=== PATIENT | male | born 1955 | race Caucasian/White ===

== ENCOUNTER 2018-07-12 05:34 | Outpatient (RCR) | payer MEDICARE, SELFPAY ==
[2018-07-12] MEDS: Normal Saline Flush 10 ML SYR IVP (08:34)
== END 2018-07-19 ==
LOC: INF 05:34
PROVIDERS: PCP Family Medicine; Visit Provider Family Medicine
DX: M05.9 Rheumatoid arthritis with rheumatoid factor, unspecified (principal)
CPT/HCPCS: 96365; J3490

== ENCOUNTER 2018-07-17 09:30 | Outpatient (RCR) | payer MEDICARE, SELFPAY ==
--- NOTE | 2018-07-03 11:42 | PTTR_ITS ---
DATE: 07/03/18 SUBJECTIVE: I am doing okay but I did have a little set back. OBJECTIVE: Manual therapy: ([id number]): Patient was placed in prone and mobilized through the distal gastrocs and mid substance of the Achilles tendon with IASTM for myofascial release. Light down regulation techniques were applied through the distal calf and patient was taped with Rock tape supporting Achilles tendon function with assist and stability. Ultrasound ([id number]). Patient receiving ultrasound directed to the mid substance of the Achilles tendon with specific parameters of 3MHz, 0.9watts per cm2 and 8 minute duration. Patient with good symptoms relief at the end of the session. Direct treatment time: 30 minutes of direct patient care.
--- NOTE | 2018-07-10 12:04 | PTTR_ITS ---
DATE: 07/10/18 SUBJECTIVE: I am doing pretty well for the most part. OBJECTIVE: Manual therapy: ([id number]). Patient was placed in supine and held under light long axis traction to decompress the hip, knee, and ankle. He is then stretched lightly through the piriformis and hamstrings with active isolated stretching technique. Patient placed in prone with neutral hip position knee flexion. He was then guided through light soft tissue work through the medial and lateral heads of the gastrocs, muscle bellies, and through the mid substance of the Achilles tendon. Patient then taped with a Rock tape support of the achilles tendon and force redistribution approach as well. Ultrasound ([id number]). Patient remaining in prone with treatment over the distal Achilles tendon and calcaneal apophysis. Specific parameters were 3MHz, 0.9watts per cm2 and 8 minute duration. Direct treatment time: 25 minutes of direct patient care.
--- NOTE | 2018-07-17 11:49 | PTTR_ITS ---
DATE: 07/17/18 SUBJECTIVE: I am doing pretty well for the most part. Making definite progress for sure. OBJECTIVE: Manual therapy: ([id number]): Patient was placed in prone and was mobilized with soft tissue mobilization through the hamstrings distally both medial and lateral fibers. The gastrocs both medial and lateral heads were mobilized with tolerance down to the musculotendinous junction. He is lightly stretched through the gastrocs with knee extension and ankle dorsiflexion. Patient then taped with Rock tape facilitation technique for plantarflexion assist and Achilles protection. A force redistribution taping was applied through the distal Achilles just superior of the calcaneal apophysis. Ultrasound - - [id number]: Ultrasound directed to the calcaneal apophysis with specific parameters of 3MHz, 100% duty cycle, 0.9watts per cm2 and 8 minute duration. This was done for pain control, anti-inflammation, and cellular excitation. Direct treatment time: 30 minutes of direct patient care.
== END 2018-07-19 23:59 | disposition home or self-care (01) ==
LOC: PT 09:30
PROVIDERS: PCP Family Medicine; Referring Provider Specialist/Technologist Athletic Trainer; Visit Provider Specialist/Technologist Athletic Trainer
DX: M76.61 Achilles tendinitis, right leg (principal); R26.89 Other abnormalities of gait and mobility; M06.9 Rheumatoid arthritis, unspecified; M79.89 Other specified soft tissue disorders
CPT/HCPCS: 97035; 97140

== ENCOUNTER 2018-08-09 00:48 | Outpatient (RCR) | payer MEDICARE, SELFPAY ==
[2018-08-09] MEDS: Normal Saline Flush 10 ML SYR IVP (08:24)
== END 2018-08-18 23:59 | disposition home or self-care (01) ==
LOC: INF 00:48
PROVIDERS: PCP Family Medicine; Visit Provider Family Medicine
DX: M05.9 Rheumatoid arthritis with rheumatoid factor, unspecified (principal)
CPT/HCPCS: 96365; J3490

== ENCOUNTER 2018-09-06 02:35 | Outpatient (RCR) | payer MEDICARE, SELFPAY ==
[2018-09-06] MEDS: Normal Saline Flush 10 ML SYR IVP (08:39)
== END 2018-09-18 23:59 | disposition home or self-care (01) ==
LOC: INF 02:35
PROVIDERS: PCP Family Medicine; Visit Provider Family Medicine
DX: M05.9 Rheumatoid arthritis with rheumatoid factor, unspecified (principal)
CPT/HCPCS: 96365; J3490

== ENCOUNTER 2018-09-21 20:50 | Emergency (ER) | payer MEDICARE, SELFPAY ==
--- NOTE | 2018-09-21 21:05 | DI.RAD_ITS ---
SYMPTOM/DIAGNOSIS: INSIDIOUS ONSET RT MEDIAL KNEE, PAIN/SWELLING RIGHT KNEE: 3 VIEWS No acute fracture or dislocation is seen. There is moderate narrowing of the medial femoral tibial joint space with periarticular spurring present. Mild spurring is seen at the posterior patella. Well corticated osseous fragment densities are seen medial to the medial femoral condyle likely reflecting old injury. The bones are normally mineralized. There is a small joint effusion. Vascular calcifications are seen in the soft tissues. IMPRESSION: No acute fracture or dislocation. 2. Osteoarthritis of the right knee.
--- NOTE | 2018-09-21 21:07 | W.ED.GENAD ---
Discharge Plan Disposition Patient Disposition: HOME Condition: Improving Discharge Details Chief Complaint: Orthopedic Clinical Impression: Osteoarthritis of right knee Primary Care Provider: Roshni Singh V ED Provider: Anatoly Cervantes Home Meds and New Rx's Prescriptions: New prednisone 20 mg tablet 40 mg PO DAILY 5 Days Qty: 10 RF: 0 Continue trazodone 50 MG tablet 50 mg PO HS PRNRF: 0 carbidopa-levodopa 1 EACH tablet 1 tab-cap PO QID RF: 0 sennosides-docusate sodium [Senna Laxative-Stool Softener] 1 EACH tablet 1 - 2 tab-cap PO DAILY RF: 0 prednisone 5 MG tablet 5 mg PO DIRECTED RF: 0 oxycodone 15 MG tablet 15 mg PO TID PRNRF: 0 hydrocortisone acetate 28.4 GM cream 1 applic Topical QID PRNRF: 0 fluticasone [Flovent HFA] 10.6 GM HFA aerosol inhaler 10.6 gm Inhalation BID RF: 0 fluoxetine [Prozac] 10 MG capsule 10 mg PO DAILY RF: 0 leucovorin calcium 5 MG tablet 5 mg PO DIRECTED RF: 0 lorazepam 1 MG tablet 0.5 - 1 mg PO HS PRNRF: 0 albuterol sulfate [Proventil HFA] 6.7 GM HFA aerosol inhaler 2 puff Inhalation Q6H PRN RF: 0 cholecalciferol (vitamin D3) 2,000 UNIT tablet 2,000 unit PO DAILY RF: 0 Discharge Instructions Instructions: Arthritis (ED) Additional Instructions: Return if you develop a fever, redness, worsening pain, or any other acute concerns. Twice daily range of motion exercises including heel sliding as we discussed. May wear brace as needed for comfort 3-5 days time. Our care management team will place you on the orthopedic follow-up list. Please call the clinic on Sunday at [phone] for an appointment time. Take prednisone as prescribed. May use the provided oxycodone for breakthrough pain. Continue your regular medications Medical Decision Making 62-year-old male presents from home with right knee pain over 4 days time associated with swelling and now pain with weightbearing. Denies fever or chills. Is not had a rash. No recent dental work or infection He is afebrile and well-appearing. He is quite tender on palpation of the medial knee & there is mild swelling. Differential diagnosis includes gout, arthritis. Patient referred for diagnostic testing: Patient's x-ray reveals tricompartmental arthritic changes with small joint effusion. CBC, CRP, uric acid are unremarkable. Patient did undergo a CT scan to rule out occult tibial plateau fracture it does show tricompartmental arthritic changes with small effusion. I discussed with him arthrocentesis which he would like to decline at this time. I will treat him for acute flare of osteoarthritis with immobilization, crutches as needed, daily range of motion exercises, a burst of steroids, and referral to orthopedics. HPI General Mode of arrival: wheelchair. Date/Time Provider Initiated Documentation: 09/21/18 20:52. Limitations to Documentation: no limitations. Information obtained by: patient and family. History of Present Illness 62 year old M presents to the emergency department with the chief complaint of Right knee pain and swelling over day days time, described as moderate, Quality is described as aching, Patient reports no radiation. Patient started experiencing this day(s) and it has been constant. Rest improves symptom(s), Movement worsens symptoms . Patient notes no other symptoms.. HPI Narrative: 62-year-old male who had previous right knee ACL repair in 1972. He reports insidious and gradual onset of aching, moderate, nonradiating right knee pain and swelling over 4 days time. No fever, chills, redness. No recent dental work or travel. Denies recent illness but states he may have had a mild URI 3 weeks Related Data Home Medications Medication Instructions Recorded Confirmed albuterol sulfate [Proventil HFA] 2 puff INHALATION Q6H PRN inhaler 09/20/16 09/21/18 carbidopa-levodopa 1 tab-cap PO QID tab-cap 09/20/16 09/21/18 cholecalciferol (vitamin D3) 2,000 unit PO DAILY tab-cap 09/20/16 09/21/18 fluoxetine [Prozac] 10 mg PO DAILY tab-cap 09/20/16 09/21/18 fluticasone [Flovent HFA] 10.6 gm INHALATION BID inhaler 09/20/16 09/21/18 hydrocortisone acetate 1 applic TOPICAL QID PRN script 09/20/16 09/21/18 leucovorin calcium 5 mg PO DIRECTED tab-cap 11/02/16 11/03/18 lorazepam 0.5 - 1 mg PO HS PRN tab-cap 09/20/16 09/21/18 oxycodone 15 mg PO TID PRN tab-cap 09/20/16 09/21/18 prednisone 5 mg PO DIRECTED tab-cap 09/20/16 sennosides-docusate sodium [Senna 1 - 2 tab-cap PO DAILY tab-cap 09/20/16 09/21/18 Laxative-Stool Softener] trazodone 50 mg PO HS PRN tab-cap 09/20/16 09/21/18 prednisone 40 mg PO DAILY 5 Days #10 tab 09/22/18 Previous Rx's Medication Instructions Recorded prednisone 40 mg PO DAILY 5 Days #10 tab 09/22/18 Allergies Allergy/AdvReac Type Severity Reaction Status Date / Time trihexyphenidyl Allergy Severe Dizziness/L Unverified 09/21/18 23:42 ightheade adalimumab [From Humira] Allergy Intermediate Hives Unverified 04/21/13 22:47 gabapentin Allergy Intermediate Hives Unverified 04/21/13 22:48 ibuprofen [From Advil] Allergy Intermediate Hives Unverified 04/21/13 22:48 leflunomide [From Arava] Allergy Intermediate Hives Unverified 04/21/13 22:48 pregabalin [From Lyrica] Allergy Intermediate Hives Unverified 04/21/13 22:48 tapentadol HCl [From Nucynta] AdvReac Intermediate GI Upset Unverified 01/12/14 16:35 and Rash venlafaxine AdvReac Intermediate Headache Unverified 01/12/14 16:35 duloxetine HCl AdvReac Mild Skin Rash Unverified 01/12/14 16:35 [From Cymbalta] methadone AdvReac Unverified 09/21/18 23:40 Review of Systems Review of Systems 8 systems reviewed and otherwise negative PFSH Social History Smoking/Tobacco Use Status: Former Tobacco Use Exam Narrative Exam Narrative: GEN: awake, alert, oriented 3. Pleasant, well groomed, interactive. HEAD: Normocephalic, atraumatic ENT: Mucous membranes moist, oropharynx unremarkable, External ear exam unremarkable EYES: PERRL, EOMI NECK: Full ROM, no MARC, no menigismus CHEST/RESP: Nontender, clear to auscultation bilateral, no wheeze/rhonchi/rales CARDIOVASCULAR: RRR, no murmur, rub casper. 2+ Rad pulse bilateral ABDOMEN: Soft, nontender, no mass. +Bowel sounds EXT: Motor is 5 out of 5 bilaterally. Sensation intact throughout. There is a crescent shaped medial surgical scar. Patient has pain with passive flexion. There is mild medial swelling at the tibial plateau and tenderness to palpation. No overlying rash. Neuro: Grossly normal neurologic exam, conversant, interactive. Psych: Speech fluent, thoughts congruent, affect normal
[2018-09-21 21:08] VITALS: BP 147/88; PULSE 63; RESP 18; TEMP 36.8; O2SAT 96
--- NOTE | 2018-09-21 21:10 | ED.GENADUL_ITS ---
Discharge Plan Disposition Patient Disposition: HOME Condition: Improving Discharge Details Chief Complaint: Orthopedic Clinical Impression: Osteoarthritis of right knee Primary Care Provider: Roshni Singh V ED Provider: Anatoly Cervantes Home Meds and New Rx's Prescriptions: New prednisone 20 mg tablet 40 mg PO DAILY 5 Days Qty: 10 RF: 0 Continue trazodone 50 MG tablet 50 mg PO HS PRNRF: 0 carbidopa-levodopa 1 EACH tablet 1 tab-cap PO QID RF: 0 sennosides-docusate sodium [Senna Laxative-Stool Softener] 1 EACH tablet 1 - 2 tab-cap PO DAILY RF: 0 prednisone 5 MG tablet 5 mg PO DIRECTED RF: 0 oxycodone 15 MG tablet 15 mg PO TID PRNRF: 0 hydrocortisone acetate 28.4 GM cream 1 applic Topical QID PRNRF: 0 fluticasone [Flovent HFA] 10.6 GM HFA aerosol inhaler 10.6 gm Inhalation BID RF: 0 fluoxetine [Prozac] 10 MG capsule 10 mg PO DAILY RF: 0 leucovorin calcium 5 MG tablet 5 mg PO DIRECTED RF: 0 lorazepam 1 MG tablet 0.5 - 1 mg PO HS PRNRF: 0 albuterol sulfate [Proventil HFA] 6.7 GM HFA aerosol inhaler 2 puff Inhalation Q6H PRN RF: 0 cholecalciferol (vitamin D3) 2,000 UNIT tablet 2,000 unit PO DAILY RF: 0 Discharge Instructions Instructions: Arthritis (ED) Additional Instructions: Return if you develop a fever, redness, worsening pain, or any other acute concerns. Twice daily range of motion exercises including heel sliding as we discussed. May wear brace as needed for comfort 3-5 days time. Our care management team will place you on the orthopedic follow-up list. Please call the clinic on Sunday at [phone] for an appointment time. Take prednisone as prescribed. May use the provided oxycodone for breakthrough pain. Continue your regular medications Medical Decision Making 62-year-old male presents from home with right knee pain over 4 days time associated with swelling and now pain with weightbearing. Denies fever or chills. Is not had a rash. No recent dental work or infection He is afebrile and well-appearing. He is quite tender on palpation of the medial knee & there is mild swelling. Differential diagnosis includes gout, arthritis. Patient referred for diagnostic testing: Patient's x-ray reveals tricompartmental arthritic changes with small joint effusion. CBC, CRP, uric acid are unremarkable. Patient did undergo a CT scan to rule out occult tibial plateau fracture it does show tricompartmental arthritic changes with small effusion. I discussed with him arthrocentesis which he would like to decline at this time. I will treat him for acute flare of osteoarthritis with immobilization, crutches as needed, daily range of motion exercises, a burst of steroids, and referral to orthopedics. HPI General Mode of arrival: wheelchair . Date/Time Provider Initiated Documentation: 09/21/18 20:52 . Limitations to Documentation: no limitations . Information obtained by: patient and family . History of Present Illness 62 year old M presents to the emergency department with the chief complaint of Right knee pain and swelling over day days time, described as moderate, Quality is described as aching, Patient reports no radiation. Patient started experiencing this day(s) and it has been constant. Rest improves symptom(s), Movement worsens symptoms . Patient notes no other symptoms.. HPI Narrative: 62-year-old male who had previous right knee ACL repair in 1972. He reports insidious and gradual onset of aching, moderate, nonradiating right knee pain and swelling over 4 days time. No fever, chills, redness. No recent dental work or travel. Denies recent illness but states he may have had a mild URI 3 weeks Related Data Home Medications Medication Instructions Recorded Confirmed albuterol sulfate [Proventil HFA] 2 puff INHALATION Q6H PRN inhaler 09/20/16 carbidopa-levodopa 1 tab-cap PO QID tab-cap 09/20/16 09/21/18 cholecalciferol (vitamin D3) 2,000 unit PO DAILY tab-cap 09/20/16 09/21/18 fluoxetine [Prozac] 10 mg PO DAILY tab-cap 09/20/16 09/21/18 fluticasone [Flovent HFA] 10.6 gm INHALATION BID inhaler 09/20/16 09/21/18 hydrocortisone acetate 1 applic TOPICAL QID PRN script 09/20/16 09/21/18 leucovorin calcium 5 mg PO DIRECTED tab-cap 11/02/16 11/03/18 lorazepam 0.5 - 1 mg PO HS PRN tab-cap 09/20/16 09/21/18 oxycodone 15 mg PO TID PRN tab-cap 09/20/16 09/21/18 prednisone 5 mg PO DIRECTED tab-cap 09/20/16 sennosides-docusate sodium [Senna 1 - 2 tab-cap PO DAILY tab-cap 09/20/1609/21 Laxative-Stool Softener] trazodone 50 mg PO HS PRN tab-cap 09/20/16 09/21/18 prednisone 40 mg PO DAILY 5 Days #10 tab 09/22/18 Previous Rx's Medication Instructions Recorded prednisone 40 mg PO DAILY 5 Days #10 tab 09/22/18 Allergies Allergy/AdvReac Type Severity Reaction Status Date / Time trihexyphenidyl Allergy Severe Dizziness/L Unverified 09/21/18 23:42 ightheade adalimumab [From Humira] Allergy Intermediate Hives Unverified 04/21/13 22:47 gabapentin Allergy Intermediate Hives Unverified 04/21/13 22:48 ibuprofen [From Advil] Allergy Intermediate Hives Unverified 04/21/13 22:48 leflunomide [From Arava] Allergy Intermediate Hives Unverified 04/21/13 22:48 pregabalin [From Lyrica] Allergy Intermediate Hives Unverified 04/21/13 22:48 tapentadol HCl [From Nucynta] AdvReac Intermediate GI Upset Unverified 01/12/14 16:35 and Rash venlafaxine AdvReac Intermediate Headache Unverified 01/12/14 16:35 duloxetine HCl AdvReac Mild Skin Rash Unverified 01/12/14 16:35 [From Cymbalta] methadone AdvReac Unverified 09/21/18 23:40 Review of Systems Review of Systems 8 systems reviewed and otherwise negative PFSH Social History Smoking/Tobacco Use Status: Former Tobacco Use Exam Narrative Exam Narrative: GEN: awake, alert, oriented 3. Pleasant, well groomed, interactive. HEAD: Normocephalic, atraumatic ENT: Mucous membranes moist, oropharynx unremarkable, External ear exam unremarkable EYES: PERRL, EOMI NECK: Full ROM, no MARC, no menigismus CHEST/RESP: Nontender, clear to auscultation bilateral, no wheeze/rhonchi/rales CARDIOVASCULAR: RRR, no murmur, rub casper. 2+ Rad pulse bilateral ABDOMEN: Soft, nontender, no mass. +Bowel sounds EXT: Motor is 5 out of 5 bilaterally. Sensation intact throughout. There is a crescent shaped medial surgical scar. Patient has pain with passive flexion. There is mild medial swelling at the tibial plateau and tenderness to palpation. No overlying rash. Neuro: Grossly normal neurologic exam, conversant, interactive. Psych: Speech fluent, thoughts congruent, affect normal
[2018-09-21] MEDS: Acetaminophen 500 MG TAB 1000 MG PO (21:25)
[2018-09-21 21:50] LABS: Abs Immature Grans 0.02 k/cumm (0.0-0.09); Absolute Basophil Count 0.05 k/cumm (0.0-0.2); Absolute Lymphocyte Count 1.91 k/cumm (1.2-3.4); Absolute Monocyte Count 0.75 k/cumm (0.11-0.7); Absolute Neutrophil Count 3.29 k/cumm (1.2-6.7); Basophils % 0.7; HCT 39.5 % (40.0-50.0); HGB 13.6 g/dL (13.5-17.5); Immature Grans % 0.3; Lymphocytes % 27.6; Mean Corp. HGB Concentration 34.4 g/dL (32.0-36.0); Mean Corpuscular Hemoglobin 32.2 pg (27.0-33.0); Mean Corpuscular Volume 93.6 fL (80-95); Mean Platelet Volume 9.7 fL (8.0-11.0); Monocytes % 10.8; Neutrophils % 47.6; Platelet Count 285 x1000/uL (130-400); RBC 4.22 m/cumm (4.50-6.00); RBC Distribution Width 12.4 % (11.8-14.1); White Blood Cell Count 6.92 k/cumm (4.4-10.8)
[2018-09-21 21:58] LABS: ALT 23 U/L (12-78); AST 24 U/L (15-37); Albumin 3.6 g/dL (3.4-5.0); Alkaline Phosphatase 54 U/L (46-116); Anion Gap 8.8 mmol/L (3-11); BUN 17 mg/dL (7-18); Bilirubin, Total 0.3 mg/dL (0.2-1.0); C-Reactive Protein < 0.05 mg/dL (0.0-0.3); CO2 27.2 mmol/L (21.0-32.0); Calcium 9.1 mg/dL (8.5-10.1); Chloride 103 mmol/L (98-107); Glucose 122 mg/dL (70-100); Potassium 4.1 mmol/L (3.5-5.1); Sodium 139 mmol/L (136-145); Total Protein 6.6 g/dL (6.4-8.2)
--- NOTE | 2018-09-21 22:23 | DI.VRAD_ITS ---
EXAM: XR Right Knee, 3 Views EXAM DATE/TIME: 09/21/2018 9:07 PM CLINICAL HISTORY: 62 years old, male; Pain; Knee; Right; Prior surgery; Patient HX: Insidious onset r medial knee pain/swelling TECHNIQUE: XR Right knee 3 views. COMPARISON: No relevant prior studies available. FINDINGS: Bones/joints: There is narrowing of the medial and lateral femoral tibial joint compartments. There is narrowing of the patellofemoral compartment. There are marginal osteophytes present. There are small suprapatellar and femorotibial joint effusions present. Soft tissues: There is mild soft tissue swelling present. Vasculature: Vascular calcifications consistent with atherosclerotic peripheral vascular disease. Other findings: There are enthesopathic changes seen. IMPRESSION: 3 compartmental degenerative changes of the right knee with joint effusion and soft tissue swelling. Dictated and Authenticated by: Preston Valencia MD. Ordering:ASH ANTON MD
[2018-09-21] MEDS: HYDROmorphone 2 MG/ML VIAL 1 MG IVP (22:27)
--- NOTE | 2018-09-21 23:30 | DI.CT_ITS ---
SYMPTOM/DIAGNOSIS: MEDIAL KNEE PAIN, EFFUSION, E/O OCCULT PLATEAU FX CT RIGHT KNEE: Multiple contiguous axial images of the right knee were obtained. Sagittal and coronal reformatted images were evaluated on the [employer]'s work station. No acute fracture or dislocation is identified. Tri-compartment degenerative changes are seen in the right knee. The findings are most marked in the medial femoral tibial joint space. The bones are normally mineralized. There is a small suprapatellar joint effusion. There are calcifications of the arterial arteries in the posterior leg. No focal fluid collection is seen in the soft tissues. IMPRESSION: 1. No acute fracture or dislocation. 2. Osteoarthritis of the knee with joint effusion.
[2018-09-21 23:52] VITALS: BP 133/66; PULSE 50; RESP 13; TEMP 37; O2SAT 100
--- NOTE | 2018-09-22 00:04 | DI.VRAD_ITS ---
EXAM: CT Right Lower Extremity Without IV Contrast, Knee EXAM DATE/TIME: 09/21/2018 10:25 PM CLINICAL HISTORY: 62 years old, male; Pain; Knee; Right; Patient HX: Medial knee pain, effusion, R/O occult plateau FX. TECHNIQUE: CT of the Right lower extremity without intravenous contrast was performed. Exam focused on the knee. All CT scans at this facility use at least one of these dose optimization techniques: automated exposure control; mA and/or kV adjustment per patient size (includes targeted exams where dose is matched to clinical indication); or iterative reconstruction. Coronal and sagittal reformatted images were created and reviewed. COMPARISON: CR XR knee RT 3V AP,lat,kermit 09/21/2018 9:41 PM FINDINGS: Bones/joints: There is narrowing of the medial and lateral femoral tibial joint compartments. There are subchondral cystic changes seen within the medial greater than lateral tibial plateau with sclerosis consistent with osteoarthritis. Similar findings are seen within the distal femoral condyles greater on the right than the left. There is narrowing of the patellofemoral compartment. There are marginal osteophytes present. There are small suprapatellar and femorotibial joint effusions present. Soft tissues: There is mild soft tissue swelling present. IMPRESSION: 3 compartmental degenerative changes of the right knee with joint effusion and soft tissue swelling likely representing osteoarthritis. Dictated and Authenticated by: Preston Valencia MD. Ordering:ASH ANTON MD
[2018-09-22] MEDS: HYDROmorphone 2 MG/ML VIAL 1 MG IVP (00:35)
[2018-09-22] MEDS: predniSONE 20 MG TAB 60 MG PO (00:36)
[2018-09-22] MEDS: oxyCODONE 5 MG TAB 20 MG PO (00:36)
[2018-09-22 00:52] VITALS: BP 130/56; PULSE 61; RESP 14; TEMP 37; O2SAT 100
== END 2018-09-22 00:16 | disposition home or self-care (01) ==
PROVIDERS: Emergency Provider Emergency Medicine; PCP Family Medicine
DX: M17.11 Unilateral primary osteoarthritis, right knee (principal); J44.9 Chronic obstructive pulmonary disease, unspecified; Z87.891 Personal history of nicotine dependence
CPT/HCPCS: 29505; 36415; 73562; 80053; 96374; 96376; 99284; 73700; 84550; 85025; 86140; E0114; J7512; L1830

== ENCOUNTER 2018-10-04 01:40 | Outpatient (RCR) | payer MEDICARE, SELFPAY ==
[2018-10-04] MEDS: Normal Saline Flush 10 ML SYR IVP (08:10)
== END 2018-10-18 23:59 | disposition home or self-care (01) ==
LOC: INF 01:40
PROVIDERS: PCP Family Medicine; Visit Provider Family Medicine
DX: M05.9 Rheumatoid arthritis with rheumatoid factor, unspecified (principal)
CPT/HCPCS: 96365; J3490

== ENCOUNTER → 2018-10-14 12:58 | Outpatient (BNVA) | payer MEDICARE, SELFPAY | PROVIDERS: PCP Family Medicine; Referring Provider Family Medicine; Visit Provider Student in an Organized Health Care Education/Training Program | DX: M17.11 Unilateral primary osteoarthritis, right knee (principal); G20 Parkinson's disease | CPT/HCPCS: 99202; 99214; L1820 ==

== ENCOUNTER 2018-11-01 06:52 | Outpatient (RCR) | payer MEDICARE, SELFPAY ==
[2018-11-01] MEDS: Normal Saline Flush 10 ML SYR IVP (08:31)
== END 2018-11-18 23:59 | disposition home or self-care (01) ==
LOC: INF 06:52
PROVIDERS: PCP Family Medicine; Visit Provider Family Medicine
DX: M05.9 Rheumatoid arthritis with rheumatoid factor, unspecified (principal)
CPT/HCPCS: 96365; J3490

== ENCOUNTER → 2018-11-25 07:55 | Outpatient (BNVA) | payer MEDICARE, SELFPAY | PROVIDERS: PCP Family Medicine; Referring Provider Family Medicine; Visit Provider Student in an Organized Health Care Education/Training Program | DX: M17.11 Unilateral primary osteoarthritis, right knee (principal); G20 Parkinson's disease | CPT/HCPCS: 99213 ==

== ENCOUNTER 2018-11-29 00:35 | Outpatient (RCR) | payer MEDICARE, SELFPAY ==
[2018-11-29] MEDS: Normal Saline Flush 10 ML SYR IVP (07:31)
== END 2018-12-19 23:59 | disposition home or self-care (01) ==
LOC: INF 00:35
PROVIDERS: PCP Family Medicine; Visit Provider Family Medicine
DX: M05.9 Rheumatoid arthritis with rheumatoid factor, unspecified (principal)
CPT/HCPCS: 96365; J3490

== ENCOUNTER 2018-12-26 02:04 | Outpatient (RCR) | payer MEDICARE, SELFPAY ==
[2018-12-26] MEDS: Normal Saline Flush 10 ML SYR IVP (07:58)
== END 2019-01-16 23:59 | disposition home or self-care (01) ==
LOC: INF 02:04
PROVIDERS: PCP Family Medicine; Visit Provider Family Medicine
DX: M05.9 Rheumatoid arthritis with rheumatoid factor, unspecified (principal)
CPT/HCPCS: 96365; J3490

== ENCOUNTER 2019-01-24 00:40 | Outpatient (RCR) | payer MEDICARE, SELFPAY ==
[2019-01-24] MEDS: Normal Saline Flush 10 ML SYR IVP (07:08)
== END 2019-02-16 23:59 | disposition home or self-care (01) ==
LOC: INF 00:40
PROVIDERS: PCP Family Medicine; Visit Provider Family Medicine
DX: M05.9 Rheumatoid arthritis with rheumatoid factor, unspecified (principal)
CPT/HCPCS: 96365; J3490

== ENCOUNTER 2019-02-21 02:42 | Outpatient (RCR) | payer MEDICARE, SELFPAY ==
[2019-02-21] MEDS: Normal Saline Flush 10 ML SYR IVP (07:30)
== END 2019-03-18 23:59 | disposition home or self-care (01) ==
LOC: INF 02:42
PROVIDERS: PCP Family Medicine; Visit Provider Family Medicine
DX: M05.9 Rheumatoid arthritis with rheumatoid factor, unspecified (principal)
CPT/HCPCS: 96365; J3490

== ENCOUNTER 2019-03-21 01:48 | Outpatient (RCR) | payer MEDICARE, SELFPAY ==
[2019-03-21] MEDS: Normal Saline Flush 10 ML SYR IVP (07:28)
== END 2019-04-18 23:59 | disposition home or self-care (01) ==
LOC: INF 01:48
PROVIDERS: PCP Family Medicine; Visit Provider Family Medicine
DX: M05.9 Rheumatoid arthritis with rheumatoid factor, unspecified (principal)
CPT/HCPCS: 96365; J3490

== ENCOUNTER 2019-04-18 01:44 | Outpatient (RCR) | payer MEDICARE, SELFPAY ==
[2019-04-18] MEDS: Normal Saline Flush 10 ML SYR IVP (07:26)
== END 2019-04-18 23:59 | disposition home or self-care (01) ==
LOC: INF 01:44
PROVIDERS: PCP Family Medicine; Visit Provider Family Medicine
DX: M05.9 Rheumatoid arthritis with rheumatoid factor, unspecified (principal)
CPT/HCPCS: 96365; J3490

== ENCOUNTER 2019-05-16 01:53 | Outpatient (RCR) | payer MEDICARE, SELFPAY ==
[2019-05-16] MEDS: Normal Saline Flush 10 ML SYR IVP (07:05)
== END 2019-05-18 23:59 | disposition home or self-care (01) ==
LOC: INF 01:53
PROVIDERS: PCP Family Medicine; Visit Provider Family Medicine
DX: M05.9 Rheumatoid arthritis with rheumatoid factor, unspecified (principal)
CPT/HCPCS: 96365; J3490

== ENCOUNTER 2019-06-13 02:42 | Outpatient (RCR) | payer MEDICARE, SELFPAY ==
[2019-06-13] MEDS: Normal Saline Flush 10 ML SYR IVP (07:07)
== END 2019-06-18 23:59 | disposition home or self-care (01) ==
LOC: INF 02:42
PROVIDERS: PCP Family Medicine; Visit Provider Family Medicine
DX: M05.9 Rheumatoid arthritis with rheumatoid factor, unspecified (principal)
CPT/HCPCS: 96365; J3490

== ENCOUNTER 2019-07-11 03:13 | Outpatient (RCR) | payer MEDICARE, SELFPAY ==
[2019-07-11] MEDS: Normal Saline Flush 10 ML SYR IVP (07:35)
== END 2019-07-19 23:59 | disposition home or self-care (01) ==
LOC: INF 03:13
PROVIDERS: PCP Family Medicine; Visit Provider Family Medicine
DX: M05.9 Rheumatoid arthritis with rheumatoid factor, unspecified (principal)
CPT/HCPCS: 96365; J3490

== ENCOUNTER 2019-08-08 03:16 | Outpatient (RCR) | payer MEDICARE, SELFPAY ==
[2019-08-08] MEDS: Normal Saline Flush 10 ML SYR IVP (07:37)
== END 2019-08-18 23:59 | disposition home or self-care (01) ==
LOC: INF 03:16
PROVIDERS: PCP Family Medicine; Visit Provider Family Medicine
DX: M05.9 Rheumatoid arthritis with rheumatoid factor, unspecified (principal)
CPT/HCPCS: 96365; J3490

== ENCOUNTER 2019-09-05 02:52 | Outpatient (RCR) | payer MEDICARE, SELFPAY ==
[2019-09-05] MEDS: Normal Saline Flush 10 ML SYR IVP (07:50)
== END 2019-09-18 23:59 | disposition home or self-care (01) ==
LOC: INF 02:52
PROVIDERS: PCP Family Medicine; Visit Provider Family Medicine
DX: M05.9 Rheumatoid arthritis with rheumatoid factor, unspecified (principal)
CPT/HCPCS: 96365; J3490

== ENCOUNTER 2019-10-03 02:26 | Outpatient (RCR) | payer MEDICARE, SELFPAY ==
[2019-10-03] MEDS: Normal Saline Flush 10 ML SYR IVP (07:41)
== END 2019-10-18 23:59 | disposition home or self-care (01) ==
LOC: INF 02:26
PROVIDERS: PCP Family Medicine; Visit Provider Family Medicine
DX: M05.9 Rheumatoid arthritis with rheumatoid factor, unspecified (principal)
CPT/HCPCS: 96365; J3490

== ENCOUNTER 2019-10-31 01:18 | Outpatient (RCR) | payer MEDICARE, SELFPAY ==
[2019-10-31] MEDS: Normal Saline Flush 10 ML SYR IVP (07:54)
== END 2019-11-18 23:59 | disposition home or self-care (01) ==
LOC: INF 01:18
PROVIDERS: PCP Family Medicine; Visit Provider Family Medicine
DX: M05.9 Rheumatoid arthritis with rheumatoid factor, unspecified (principal)
CPT/HCPCS: 96365; J3490

== ENCOUNTER 2019-11-25 09:48 | Outpatient (CLI) | payer MEDICARE, SELFPAY ==
[2019-11-25 10:44] LABS: Abs Immature Grans 0.02 k/cumm (0.0-0.09); Absolute Basophil Count 0.04 k/cumm (0.0-0.2); Absolute Eosinophil Count 1.31 k/cumm (0.0-0.7); Absolute Lymphocyte Count 1.82 k/cumm (1.2-3.4); Absolute Monocyte Count 0.68 k/cumm (0.11-0.7); Basophils % 0.5; Eosinophils % 17.1; HCT 44.8 % (40.0-50.0); HGB 15.1 g/dL (13.5-17.5); Immature Grans % 0.3 %; Lymphocytes % 23.7; Mean Corp. HGB Concentration 33.7 g/dL (32.0-36.0); Mean Corpuscular Hemoglobin 31.7 pg (27.0-33.0); Mean Corpuscular Volume 93.9 fL (80-95); Mean Platelet Volume 9.7 fL (8.0-11.0); Monocytes % 8.9; Neutrophils % 49.5; Platelet Count 212 x1000/uL (130-400); RBC 4.77 m/cumm (4.50-6.00); RBC Distribution Width 12.5 % (11.8-14.1); White Blood Cell Count 7.67 k/cumm (4.4-10.8)
[2019-11-25 11:33] LABS: ALT 130 U/L (16-63); AST 47 U/L (15-37); Albumin 4.5 g/dL (3.4-5.0); Alkaline Phosphatase 52 U/L (46-116); Anion Gap 4.5 mmol/L (3-11); BUN 16 mg/dL (7-18); Bilirubin, Total 0.5 mg/dL (0.2-1.0); CO2 29.5 mmol/L (21.0-32.0); CREATININE 0.97 mg/dL (0.70-1.30); Calcium 9.9 mg/dL (8.5-10.1); Chloride 107 mmol/L (98-107); Glucose 114 mg/dL (74-106); Potassium 4.3 mmol/L (3.5-5.1); Sodium 141 mmol/L (136-145); Total Protein 7.6 g/dL (6.4-8.2)
== END 2019-11-25 10:08 ==
PROVIDERS: PCP Family Medicine; Visit Provider Internal Medicine Rheumatology
DX: M05.9 Rheumatoid arthritis with rheumatoid factor, unspecified (principal)
CPT/HCPCS: 36415; 80053; 85025

== ENCOUNTER 2019-11-28 03:53 | Outpatient (RCR) | payer MEDICARE, SELFPAY ==
[2019-11-28] MEDS: Normal Saline Flush 10 ML SYR IVP (08:04)
== END 2019-12-19 23:59 | disposition home or self-care (01) ==
LOC: INF 03:53
PROVIDERS: PCP Family Medicine; Visit Provider Family Medicine
DX: M05.9 Rheumatoid arthritis with rheumatoid factor, unspecified (principal)
CPT/HCPCS: 96365; J3262

== ENCOUNTER 2019-12-04 07:00 | Outpatient (CLI) | payer MEDICARE, SELFPAY ==
[2019-12-04 10:51] LABS: ALT 130 U/L (16-63); AST 40 U/L (15-37); Albumin 4.2 g/dL (3.4-5.0); Alkaline Phosphatase 51 U/L (46-116); Anion Gap 6.8 mmol/L (3-11); BUN 16 mg/dL (7-18); Bilirubin, Total 0.5 mg/dL (0.2-1.0); CO2 31.2 mmol/L (21.0-32.0); CREATININE 0.87 mg/dL (0.70-1.30); Calcium 10.3 mg/dL (8.5-10.1); Chloride 106 mmol/L (98-107); Glucose 112 mg/dL (74-106); Potassium 4.6 mmol/L (3.5-5.1); Sodium 144 mmol/L (136-145); Total Protein 7.2 g/dL (6.4-8.2)
== END 2019-12-04 07:20 ==
PROVIDERS: PCP Family Medicine; Visit Provider Internal Medicine Rheumatology
DX: R74.0 Nonspecific elevation of levels of transaminase and lactic acid dehydrogenase [LDH] (principal); M05.9 Rheumatoid arthritis with rheumatoid factor, unspecified
CPT/HCPCS: 80053

== ENCOUNTER 2020-01-23 04:53 | Outpatient (RCR) | payer OTHER, MEDICARE, SELFPAY ==
[2020-01-23 07:34] LABS: ALT 59 U/L (16-63); AST 29 U/L (15-37); Alkaline Phosphatase 67 U/L (46-116); Anion Gap 6.6 mmol/L (3-11); BUN 12 mg/dL (7-18); Bilirubin, Total 0.5 mg/dL (0.2-1.0); CO2 30.4 mmol/L (21.0-32.0); Calcium 9.9 mg/dL (8.5-10.1); Chloride 105 mmol/L (98-107); Glucose 120 mg/dL (74-106); Potassium 4.1 mmol/L (3.5-5.1); Sodium 142 mmol/L (136-145); Total Protein 7.7 g/dL (6.4-8.2)
[2020-01-23] MEDS: Normal Saline Flush 10 ML SYR IVP (07:48)
== END 2020-02-17 23:59 | disposition home or self-care (01) ==
LOC: INF 04:53
PROVIDERS: Internal Medicine Rheumatology; PCP Family Medicine; Visit Provider Family Medicine
DX: M05.9 Rheumatoid arthritis with rheumatoid factor, unspecified (principal); R73.09 Other abnormal glucose
CPT/HCPCS: 36415; 80053; 96365; J3262

== ENCOUNTER 2020-02-03 07:05 | Outpatient (CLI) | payer OTHER, SELFPAY, MEDICARE ==
[2020-02-03 08:26] LABS: ALT 78 U/L (16-63); AST 35 U/L (15-37); Albumin 4.3 g/dL (3.4-5.0); Alkaline Phosphatase 56 U/L (46-116); Anion Gap 10.2 mmol/L (3-11); BUN 16 mg/dL (7-18); Bilirubin, Total 0.7 mg/dL (0.2-1.0); CO2 26.8 mmol/L (21.0-32.0); CREATININE 1.11 mg/dL (0.70-1.30); Calcium 9.7 mg/dL (8.5-10.1); Chloride 106 mmol/L (98-107); Glucose 116 mg/dL (74-106); Potassium 4.1 mmol/L (3.5-5.1); Sodium 143 mmol/L (136-145); Total Protein 7.5 g/dL (6.4-8.2)
== END 2020-02-03 07:25 ==
PROVIDERS: PCP Family Medicine; Referring Provider Family Medicine; Visit Provider Internal Medicine Rheumatology
DX: M05.9 Rheumatoid arthritis with rheumatoid factor, unspecified (principal); R74.0 Nonspecific elevation of levels of transaminase and lactic acid dehydrogenase [LDH]
CPT/HCPCS: 36415; 80053

== ENCOUNTER 2020-02-20 00:47 | Outpatient (RCR) | payer OTHER, MEDICARE, SELFPAY ==
[2020-02-20] MEDS: Normal Saline Flush 10 ML SYR IVP (08:54)
[2020-02-20 09:25] LABS: ALT 73 U/L (16-63); AST 35 U/L (15-37); Albumin 3.6 g/dL (3.4-5.0); Alkaline Phosphatase 56 U/L (46-116); Anion Gap 8.9 mmol/L (3-11); BUN 9 mg/dL (7-18); Bilirubin, Total 0.6 mg/dL (0.2-1.0); C-Reactive Protein 0.15 mg/dL (0.0-0.3); CO2 23.1 mmol/L (21.0-32.0); CREATININE 0.99 mg/dL (0.70-1.30); Calcium 8.6 mg/dL (8.5-10.1); Chloride 108 mmol/L (98-107); Glucose 158 mg/dL (74-106); Potassium 4.2 mmol/L (3.5-5.1); Sodium 140 mmol/L (136-145); Total Protein 6.8 g/dL (6.4-8.2)
== END 2020-03-18 23:59 | disposition home or self-care (01) ==
LOC: INF 00:47
PROVIDERS: Internal Medicine Rheumatology; PCP Family Medicine; Visit Provider Internal Medicine
DX: R74.0 Nonspecific elevation of levels of transaminase and lactic acid dehydrogenase [LDH] (principal); M06.9 Rheumatoid arthritis, unspecified
CPT/HCPCS: 36415; 80053; 96365; 86140; J3262

== ENCOUNTER 2020-04-23 10:17 | Outpatient (REF) | payer OTHER, MEDICARE, SELFPAY ==
[2020-04-23 20:07] LABS: HCT 44.5 % (40.0-50.0); HGB 14.9 g/dL (13.5-17.5); Mean Corp. HGB Concentration 33.5 g/dL (32.0-36.0); Mean Corpuscular Hemoglobin 31.2 pg (27.0-33.0); Mean Corpuscular Volume 93.3 fL (80-95); Mean Platelet Volume 10.5 fL (8.0-11.0); Platelet Count 252 x1000/uL (130-400); RBC 4.77 m/cumm (4.50-6.00); RBC Distribution Width 12.6 % (11.8-14.1); White Blood Cell Count 8.36 k/cumm (4.4-10.8)
[2020-04-23 20:23] LABS: ALT 87 U/L (16-63); AST 38 U/L (15-37); Albumin 4.1 g/dL (3.4-5.0); Alkaline Phosphatase 70 U/L (46-116); Anion Gap 10.9 mmol/L (3-11); BUN 14 mg/dL (7-18); Bilirubin, Total 0.4 mg/dL (0.2-1.0); CO2 24.1 mmol/L (21.0-32.0); CREATININE 1.03 mg/dL (0.70-1.30); Calcium 9.9 mg/dL (8.5-10.1); Calculated LDL 165 mg/dL (<100); Chloride 108 mmol/L (98-107); Cholesterol 248 mg/dL (<200); Glucose 105 mg/dL (74-106); HDL Cholesterol 48 mg/dL (40-60); Potassium 4.5 mmol/L (3.5-5.1); Sodium 143 mmol/L (136-145); Total Protein 7.5 g/dL (6.4-8.2); Triglyceride 179 mg/dL (<150)
[2020-04-23 20:50] LABS: C-Reactive Protein 0.58 mg/dL (0.0-0.3)
[2020-04-23 20:57] LABS: ESR 18 mm/hr (1-20)
== END 2020-04-23 10:37 ==
LOC: NCHCN 10:17
PROVIDERS: PCP Family Medicine; Visit Provider Family Medicine
DX: M06.9 Rheumatoid arthritis, unspecified (principal); E78.5 Hyperlipidemia, unspecified
CPT/HCPCS: 80053; 80061; 85027; 85652; 86140

== ENCOUNTER 2020-06-14 01:24 | Outpatient (CLI) | payer OTHER, MEDICARE, SELFPAY ==
--- NOTE | 2020-06-14 | DI.US_ITS ---
EXAM: US ABDOMEN CLINICAL HISTORY: ELEEVATED LFT'S,R79.89 TECHNIQUE: Ultrasound performed using standard protocol. COMPARISON: No exams were available for comparison FINDINGS: The liver measures 16.6 cm in length and shows increased echogenicity, consistent with fatty infiltr ation. There is an 11 millimeter cyst in the left lobe and 8 millimeters cyst in the right lobe. Th ere are no suspicious masses. There is no biliary dilatation. There are small echogenic foci within the gallbladder wall near the fundus consistent with adenomyomatosis. There is no gallbladder wall thickening or sonographic Crowell sign. Pancreas was not well seen. The spleen is normal in size. T he kidneys are normal. The aorta is normal in diameter. There is no ascites. IMPRESSION: Hepatic steatosis. Small liver cysts. Mild adenomyomatosis of the gallbladder fundus. DATA REPOSITORY:
== END 2020-06-14 01:44 ==
PROVIDERS: PCP Family Medicine; Visit Provider Family Medicine
DX: K76.0 Fatty (change of) liver, not elsewhere classified (principal); K76.89 Other specified diseases of liver; R79.89 Other specified abnormal findings of blood chemistry; K82.8 Other specified diseases of gallbladder
CPT/HCPCS: 76700

== ENCOUNTER 2020-06-30 03:20 | Outpatient (CLI) | payer OTHER, SELFPAY ==
[2020-06-30 07:46] LABS: Abs Immature Grans 0.03 10^3/uL (0.0-0.06); Absolute Basophil Count 0.04 10^3/uL (0.0-0.2); Absolute Eosinophil Count 0.69 10^3/uL (0.0-0.7); Absolute Monocyte Count 0.71 10^3/uL (0.1-0.8); Absolute Neutrophil Count 5.02 10^3/uL (1.2-6.7); Basophils % 0.5; HCT 45.2 % (40.0-50.0); HGB 14.9 g/dL (13.5-17.5); Immature Grans % 0.3; Lymphocytes % 24.4; MCH 30.6 pg (27.0-33.0); MCV 92.8 fL (80-95); MPV 9.3 fL (8.0-11.0); Monocytes % 8.3; Neutrophils % 58.5; Nucleated RBC 0 %; Platelet Count 300 10^3/uL (130-400); RBC 4.87 10^6/uL (4.36-5.78); RDW 11.8 % (11.8-14.1); RDW-SD 39.8 fL; WBC 8.59 10^3/uL (4.4-10.8)
[2020-06-30 08:47] LABS: ALT 52 U/L (16-63); AST 26 U/L (15-37); Albumin 4.1 g/dL (3.4-5.0); Alkaline Phosphatase 76 U/L (46-116); Anion Gap 7.7 mmol/L (3-11); BUN 19 mg/dL (7-18); Bilirubin, Total 0.4 mg/dL (0.2-1.0); C-Reactive Protein 0.34 mg/dL (0.0-0.3); CO2 28.3 mmol/L (21.0-32.0); Calcium 10.5 mg/dL (8.5-10.1); Chloride 104 mmol/L (98-107); Glucose 104 mg/dL (74-106); Potassium 4.9 mmol/L (3.5-5.1); Sodium 140 mmol/L (136-145); Total Protein 7.8 g/dL (6.4-8.2)
== END 2020-06-30 03:40 ==
PROVIDERS: PCP Family Medicine; Visit Provider Nurse Practitioner Family
DX: M05.79 Rheumatoid arthritis with rheumatoid factor of multiple sites without organ or systems involvement (principal); Z79.899 Other long term (current) drug therapy; R74.0 Nonspecific elevation of levels of transaminase and lactic acid dehydrogenase [LDH]
CPT/HCPCS: 36415; 80053; 85025; 86140

== ENCOUNTER 2020-09-02 08:30 | Outpatient (RCR) | payer OTHER, SELFPAY ==
[2020-09-02 08:41] LABS: Abs Immature Grans 0.03 10^3/uL (0.0-0.06); Absolute Basophil Count 0.05 10^3/uL (0.0-0.2); Absolute Eosinophil Count 0.54 10^3/uL (0.0-0.7); Absolute Lymphocyte Count 1.99 10^3/uL (1.2-3.4); Absolute Monocyte Count 0.74 10^3/uL (0.1-0.8); Absolute Neutrophil Count 6.32 10^3/uL (1.2-6.7); Basophils % 0.5; Eosinophils % 5.6; HCT 45.2 % (40.0-50.0); Immature Grans % 0.3; Lymphocytes % 20.6; MCH 30.9 pg (27.0-33.0); MCHC 33.2 % (32.0-36.0); MCV 93.2 fL (80-95); MPV 9.6 fL (8.0-11.0); Monocytes % 7.7; Neutrophils % 65.3; Nucleated RBC 0 %; Platelet Count 295 10^3/uL (130-400); RBC 4.85 10^6/uL (4.36-5.78); RDW 12.5 % (11.8-14.1); RDW-SD 43.4 fL; WBC 9.67 10^3/uL (4.4-10.8)
[2020-09-02 08:55] LABS: ALT 47 U/L (16-63); AST 24 U/L (15-37); Alkaline Phosphatase 73 U/L (46-116); Anion Gap 8.4 mmol/L (3-11); BUN 15 mg/dL (7-18); Bilirubin, Total 0.5 mg/dL (0.2-1.0); C-Reactive Protein 0.38 mg/dL (0.0-0.3); CO2 27.6 mmol/L (21.0-32.0); CREATININE 1.15 mg/dL (0.70-1.30); Calcium 10.1 mg/dL (8.5-10.1); Chloride 105 mmol/L (98-107); Glucose 134 mg/dL (74-106); Potassium 4.1 mmol/L (3.5-5.1); Sodium 141 mmol/L (136-145)
[2020-09-02] MEDS: Normal Saline Flush 10 ML SYR IVP (09:00)
== END 2020-09-18 23:59 | disposition home or self-care (01) ==
LOC: INF 08:30
PROVIDERS: PCP Family Medicine; Visit Provider Nurse Practitioner Family
DX: M05.79 Rheumatoid arthritis with rheumatoid factor of multiple sites without organ or systems involvement (principal)
CPT/HCPCS: 36415; 80053; 96365; 85025; 86140; J3262; J3490

== ENCOUNTER 2020-09-30 08:30 | Outpatient (RCR) | payer OTHER, SELFPAY ==
[2020-09-30] MEDS: Normal Saline Flush 10 ML SYR IVP (08:58)
[2020-09-30 09:16] LABS: Hemoglobin A1C 5.7 % (<5.7)
[2020-09-30 09:46] LABS: TSH (W/Ref FT4) 1.18 uIU/mL (0.36-3.74); Vitamin B12 505 pg/mL (193-986)
[2020-10-01 16:12] LABS: PSA, Screening 2.1 ng/mL (0-4.5)
== END 2020-10-18 23:59 | disposition home or self-care (01) ==
LOC: INF 08:30
PROVIDERS: PCP Family Medicine; Visit Provider Nurse Practitioner Family
DX: G62.9 Polyneuropathy, unspecified (principal); Z00.00 Encounter for general adult medical examination without abnormal findings; Z12.5 Encounter for screening for malignant neoplasm of prostate; M05.79 Rheumatoid arthritis with rheumatoid factor of multiple sites without organ or systems involvement
CPT/HCPCS: 36415; 84153; 96365; 82607; 83036; 84443; J3262; J3490

== ENCOUNTER 2020-10-28 04:29 | Outpatient (RCR) | payer OTHER, SELFPAY ==
[2020-10-28] MEDS: Normal Saline Flush 10 ML SYR IVP (08:44)
== END 2020-11-18 23:59 | disposition home or self-care (01) ==
LOC: INF 04:29
PROVIDERS: PCP Family Medicine; Visit Provider Nurse Practitioner Family
DX: M05.79 Rheumatoid arthritis with rheumatoid factor of multiple sites without organ or systems involvement (principal)
CPT/HCPCS: 96365; J3262; J3490

== ENCOUNTER 2020-11-25 08:30 | Outpatient (RCR) | payer OTHER, SELFPAY ==
[2020-11-25 08:49] LABS: Abs Immature Grans 0.01 10^3/uL (0.0-0.06); Absolute Basophil Count 0.05 10^3/uL (0.0-0.2); Absolute Eosinophil Count 0.82 10^3/uL (0.0-0.7); Absolute Lymphocyte Count 1.78 10^3/uL (1.2-3.4); Absolute Monocyte Count 0.79 10^3/uL (0.1-0.8); Absolute Neutrophil Count 6.21 10^3/uL (1.2-6.7); Basophils % 0.5; Eosinophils % 8.5; HCT 45.6 % (40.0-50.0); HGB 15.5 g/dL (13.5-17.5); Immature Grans % 0.1; Lymphocytes % 18.4; MCH 31.4 pg (27.0-33.0); MCV 92.5 fL (80-95); MPV 9.8 fL (8.0-11.0); Monocytes % 8.2; Neutrophils % 64.3; Nucleated RBC 0 %; Platelet Count 209 10^3/uL (130-400); RBC 4.93 10^6/uL (4.36-5.78); RDW 12.5 % (11.8-14.1); RDW-SD 42.4 fL; WBC 9.66 10^3/uL (4.4-10.8)
[2020-11-25] MEDS: Normal Saline Flush 10 ML SYR IVP (08:57)
[2020-11-25 09:01] LABS: ALT 71 U/L (16-63); AST 30 U/L (15-37); Albumin 4.2 g/dL (3.4-5.0); Alkaline Phosphatase 58 U/L (46-116); Anion Gap 7.8 mmol/L (3-11); BUN 15 mg/dL (7-18); Bilirubin, Total 0.8 mg/dL (0.2-1.0); CO2 27.2 mmol/L (21.0-32.0); CREATININE 1.04 mg/dL (0.70-1.30); Calcium 9.6 mg/dL (8.5-10.1); Chloride 105 mmol/L (98-107); Glucose 145 mg/dL (74-106); Potassium 3.9 mmol/L (3.5-5.1); Sodium 140 mmol/L (136-145); Total Protein 7.5 g/dL (6.4-8.2)
[2020-11-25 09:15] LABS: C-Reactive Protein < 0.05 mg/dL (0.0-0.3)
== END 2020-12-19 23:59 | disposition home or self-care (01) ==
LOC: INF 08:30
PROVIDERS: PCP Family Medicine; Visit Provider Nurse Practitioner Family
DX: M05.79 Rheumatoid arthritis with rheumatoid factor of multiple sites without organ or systems involvement (principal)
CPT/HCPCS: 36415; 80053; 96365; 85025; 86140; J3262; J3490

== ENCOUNTER 2020-12-23 01:47 | Outpatient (RCR) | payer OTHER, SELFPAY ==
[2020-12-23] MEDS: Normal Saline Flush 10 ML SYR IVP (08:44)
== END 2021-01-16 23:59 | disposition home or self-care (01) ==
LOC: INF 01:47
PROVIDERS: PCP Family Medicine; Visit Provider Nurse Practitioner Family
DX: M05.79 Rheumatoid arthritis with rheumatoid factor of multiple sites without organ or systems involvement (principal)
CPT/HCPCS: 96365; J3262; J3490

== ENCOUNTER 2021-01-20 08:30 | Outpatient (RCR) | payer OTHER, SELFPAY ==
[2021-01-20 08:48] LABS: Abs Immature Grans 0.04 10^3/uL (0.0-0.06); Absolute Basophil Count 0.07 10^3/uL (0.0-0.2); Absolute Eosinophil Count 0.77 10^3/uL (0.0-0.7); Absolute Lymphocyte Count 2.06 10^3/uL (1.2-3.4); Absolute Monocyte Count 1.03 10^3/uL (0.1-0.8); Absolute Neutrophil Count 6.14 10^3/uL (1.2-6.7); Basophils % 0.7; Eosinophils % 7.6; HCT 45.1 % (40.0-50.0); HGB 15.6 g/dL (13.5-17.5); Immature Grans % 0.4; Lymphocytes % 20.4; MCHC 34.6 % (32.0-36.0); MCV 92.6 fL (80-95); Monocytes % 10.2; Neutrophils % 60.7; Nucleated RBC 0 %; Platelet Count 208 10^3/uL (130-400); RBC 4.87 10^6/uL (4.36-5.78); RDW 11.9 % (11.8-14.1); RDW-SD 40.8 fL; WBC 10.11 10^3/uL (4.4-10.8)
[2021-01-20] MEDS: Normal Saline Flush 10 ML SYR IVP (08:49)
[2021-01-20 09:02] LABS: ALT 69 U/L (16-63); AST 24 U/L (15-37); Albumin 4.2 g/dL (3.4-5.0); Alkaline Phosphatase 59 U/L (46-116); BUN 15 mg/dL (7-18); Bilirubin, Total 0.5 mg/dL (0.2-1.0); CREATININE 0.9 mg/dL (0.70-1.30); Calcium 9.9 mg/dL (8.5-10.1); Chloride 105 mmol/L (98-107); Glucose 101 mg/dL (74-106); Sodium 141 mmol/L (136-145); Total Protein 7.7 g/dL (6.4-8.2)
[2021-01-20 09:06] LABS: C-Reactive Protein < 0.05 mg/dL (0.0-0.3)
== END 2021-02-16 23:59 | disposition home or self-care (01) ==
LOC: INF 08:30
PROVIDERS: PCP Family Medicine; Visit Provider Nurse Practitioner Family
DX: M05.79 Rheumatoid arthritis with rheumatoid factor of multiple sites without organ or systems involvement (principal)
CPT/HCPCS: 36415; 80053; 96365; 85025; 86140; J3262; J3490

== ENCOUNTER 2021-03-17 01:46 | Outpatient (RCR) | payer OTHER, SELFPAY ==
[2021-03-17] MEDS: Normal Saline Flush 10 ML SYR IVP (08:36)
[2021-03-17 09:26] LABS: Abs Immature Grans 0.03 10^3/uL (0.0-0.06); Absolute Basophil Count 0.07 10^3/uL (0.0-0.2); Absolute Eosinophil Count 0.54 10^3/uL (0.0-0.7); Absolute Lymphocyte Count 1.86 10^3/uL (1.2-3.4); Absolute Monocyte Count 0.71 10^3/uL (0.1-0.8); Basophils % 0.9; HCT 45.2 % (40.0-50.0); HGB 15.3 g/dL (13.5-17.5); Immature Grans % 0.4; Lymphocytes % 24.1; MCH 31.5 pg (27.0-33.0); MCHC 33.8 % (32.0-36.0); MCV 93.2 fL (80-95); MPV 9.7 fL (8.0-11.0); Monocytes % 9.2; Neutrophils % 58.4; Nucleated RBC 0 %; Platelet Count 277 10^3/uL (130-400); RBC 4.85 10^6/uL (4.36-5.78); RDW 11.9 % (11.8-14.1); RDW-SD 40.8 fL; WBC 7.71 10^3/uL (4.4-10.8)
[2021-03-17 09:38] LABS: ALT 55 U/L (16-63); AST 24 U/L (15-37); Alkaline Phosphatase 68 U/L (46-116); Anion Gap 10.2 mmol/L (3-11); BUN 18 mg/dL (7-18); Bilirubin, Total 0.5 mg/dL (0.2-1.0); C-Reactive Protein 0.07 mg/dL (0.0-0.3); CO2 27.8 mmol/L (21.0-32.0); Calcium 10.3 mg/dL (8.5-10.1); Chloride 104 mmol/L (98-107); Glucose 115 mg/dL (74-106); Sodium 142 mmol/L (136-145); Total Protein 7.9 g/dL (6.4-8.2)
== END 2021-03-18 23:59 | disposition home or self-care (01) ==
LOC: INF 01:46
PROVIDERS: PCP Family Medicine; Visit Provider Nurse Practitioner Family
DX: M05.79 Rheumatoid arthritis with rheumatoid factor of multiple sites without organ or systems involvement (principal)
CPT/HCPCS: 80053; 96365; 85025; 86140; J3262; J3490

== ENCOUNTER 2021-04-14 08:30 | Outpatient (RCR) | payer OTHER, SELFPAY ==
[2021-04-14 08:47] LABS: Calculated LDL 167 mg/dL (<100); Cholesterol 260 mg/dL (<200); HDL Cholesterol 40 mg/dL (40-60); Triglyceride 265 mg/dL (<150)
[2021-04-14] MEDS: Normal Saline Flush 10 ML SYR IVP (08:51)
[2021-04-14 10:01] LABS: Hemoglobin A1C 5.5 % (<5.7)
== END 2021-04-18 23:59 | disposition home or self-care (01) ==
LOC: INF 08:30
PROVIDERS: PCP Family Medicine; Visit Provider Nurse Practitioner Family
DX: M05.79 Rheumatoid arthritis with rheumatoid factor of multiple sites without organ or systems involvement (principal); E78.5 Hyperlipidemia, unspecified; Z00.00 Encounter for general adult medical examination without abnormal findings
CPT/HCPCS: 36415; 80061; 96365; 83036; J3262; J3490

== ENCOUNTER 2021-05-12 10:00 | Outpatient (RCR) | payer OTHER, SELFPAY ==
[2021-05-12] MEDS: Normal Saline Flush 10 ML SYR IVP (10:10)
[2021-05-12 10:12] LABS: Abs Immature Grans 0.02 10^3/uL (0.0-0.06); Absolute Basophil Count 0.07 10^3/uL (0.0-0.2); Absolute Eosinophil Count 0.88 10^3/uL (0.0-0.7); Absolute Monocyte Count 0.95 10^3/uL (0.1-0.8); Absolute Neutrophil Count 5.61 10^3/uL (1.2-6.7); Basophils % 0.8; Eosinophils % 9.4; HCT 43.1 % (40.0-50.0); HGB 14.7 g/dL (13.5-17.5); Immature Grans % 0.2; Lymphocytes % 19.3; MCH 32.4 pg (27.0-33.0); MCHC 34.1 % (32.0-36.0); MCV 94.9 fL (80-95); Monocytes % 10.2; Neutrophils % 60.1; Nucleated RBC 0 %; Platelet Count 232 10^3/uL (130-400); RBC 4.54 10^6/uL (4.36-5.78); RDW 12.3 % (11.8-14.1); RDW-SD 42.7 fL; WBC 9.33 10^3/uL (4.4-10.8)
[2021-05-12 10:35] LABS: ALT 78 U/L (16-63); AST 37 U/L (15-37); Alkaline Phosphatase 57 U/L (46-116); BUN 18 mg/dL (7-18); Bilirubin, Total 0.5 mg/dL (0.2-1.0); CREATININE 0.9 mg/dL (0.70-1.30); Calcium 9.9 mg/dL (8.5-10.1); Chloride 108 mmol/L (98-107); Glucose 112 mg/dL (74-106); Potassium 4.2 mmol/L (3.5-5.1); Sodium 144 mmol/L (136-145); Total Protein 7.5 g/dL (6.4-8.2)
== END 2021-05-18 23:59 | disposition home or self-care (01) ==
LOC: INF 10:00
PROVIDERS: PCP Family Medicine; Visit Provider Nurse Practitioner Family
DX: M06.9 Rheumatoid arthritis, unspecified (principal)
CPT/HCPCS: 36415; 80053; 96365; 85025; 86140; J3262; J3490

== ENCOUNTER 2021-06-10 05:51 | Outpatient (RCR) | payer OTHER, SELFPAY ==
[2021-06-10] MEDS: Normal Saline Flush 10 ML SYR IVP (09:09)
== END 2021-06-18 23:59 | disposition home or self-care (01) ==
LOC: INF 05:51
PROVIDERS: PCP Family Medicine; Visit Provider Nurse Practitioner Family
DX: M06.9 Rheumatoid arthritis, unspecified (principal)
CPT/HCPCS: 96365; J3262; J3490

== ENCOUNTER 2021-07-07 08:00 | Outpatient (RCR) | payer OTHER, SELFPAY ==
[2021-07-07 08:23] LABS: Abs Immature Grans 0.03 10^3/uL (0.0-0.06); Absolute Basophil Count 0.06 10^3/uL (0.0-0.2); Absolute Eosinophil Count 1.05 10^3/uL (0.0-0.7); Absolute Lymphocyte Count 2.25 10^3/uL (1.2-3.4); Absolute Monocyte Count 0.91 10^3/uL (0.1-0.8); Absolute Neutrophil Count 6.22 10^3/uL (1.2-6.7); Basophils % 0.6; HCT 44.3 % (40.0-50.0); HGB 14.8 g/dL (13.5-17.5); Immature Grans % 0.3; Lymphocytes % 21.4; MCH 31.4 pg (27.0-33.0); MCHC 33.4 % (32.0-36.0); MCV 94.1 fL (80-95); MPV 9.9 fL (8.0-11.0); Monocytes % 8.7; Nucleated RBC 0 %; Platelet Count 198 10^3/uL (130-400); RBC 4.71 10^6/uL (4.36-5.78); RDW-SD 42.2 fL; WBC 10.52 10^3/uL (4.4-10.8)
[2021-07-07] MEDS: Normal Saline Flush 10 ML SYR IVP (08:27)
[2021-07-07 08:38] LABS: ALT 96 U/L (16-63); AST 33 U/L (15-37); Albumin 4.3 g/dL (3.4-5.0); Alkaline Phosphatase 51 U/L (46-116); BUN 18 mg/dL (7-18); Bilirubin, Total 0.7 mg/dL (0.2-1.0); C-Reactive Protein < 0.05 mg/dL (0.0-0.3); CREATININE 1.1 mg/dL (0.70-1.30); Calcium 9.5 mg/dL (8.5-10.1); Chloride 107 mmol/L (98-107); Glucose 113 mg/dL (74-106); Potassium 4.2 mmol/L (3.5-5.1); Sodium 143 mmol/L (136-145); Total Protein 7.5 g/dL (6.4-8.2)
== END 2021-07-19 23:59 | disposition home or self-care (01) ==
LOC: INF 08:00
PROVIDERS: Nurse Practitioner Family; PCP Family Medicine; Visit Provider Nurse Practitioner Family
DX: M05.79 Rheumatoid arthritis with rheumatoid factor of multiple sites without organ or systems involvement (principal)
CPT/HCPCS: 36415; 80053; 96365; 85025; 86140; J3262

== ENCOUNTER 2021-08-04 02:40 | Outpatient (RCR) | payer OTHER, SELFPAY ==
[2021-08-04] MEDS: Normal Saline Flush 10 ML SYR IVP (08:04)
== END 2021-08-18 23:59 | disposition home or self-care (01) ==
LOC: INF 02:40
PROVIDERS: PCP Family Medicine; Visit Provider Nurse Practitioner Family
DX: M05.79 Rheumatoid arthritis with rheumatoid factor of multiple sites without organ or systems involvement (principal)
CPT/HCPCS: 96365; J3262

== ENCOUNTER 2021-12-06 17:55 | Outpatient (REF) | payer OTHER, SELFPAY ==
[2021-12-06 14:24] LABS: HCT 44.8 % (40.0-50.0); HGB 15.2 g/dL (13.5-17.5); MCH 31.7 pg (27.0-33.0); MCHC 33.9 % (32.0-36.0); MCV 93.5 fL (80-95); MPV 10.4 fL (8.0-11.0); Platelet Count 204 10^3/uL (130-400); RBC 4.79 10^6/uL (4.36-5.78); WBC 5.62 10^3/uL (4.4-10.8)
[2021-12-06 14:28] LABS: ESR < 1 mm/hr (0-20)
[2021-12-06 14:49] LABS: Hemoglobin A1C 5.5 % (<5.7)
[2021-12-06 14:59] LABS: ALT 158 U/L (16-63); AST 61 U/L (15-37); Albumin 4.7 g/dL (3.4-5.0); Alkaline Phosphatase 55 U/L (46-116); Anion Gap 8.7 mmol/L (3-11); BUN 14 mg/dL (7-18); Bilirubin, Total 0.5 mg/dL (0.2-1.0); CO2 26.3 mmol/L (21.0-32.0); Calcium 9.9 mg/dL (8.5-10.1); Calculated LDL 132 mg/dL (<100); Chloride 105 mmol/L (98-107); Cholesterol 223 mg/dL (<200); Glucose 116 mg/dL (74-106); HDL Cholesterol 48 mg/dL (40-60); Potassium 4.2 mmol/L (3.5-5.1); Sodium 140 mmol/L (136-145); TSH 1.28 uIU/mL (0.36-3.74); Total Protein 7.6 g/dL (6.4-8.2); Triglyceride 217 mg/dL (<150); Vitamin B12 495 pg/mL (193-986)
[2021-12-06 15:20] LABS: C-Reactive Protein < 0.05 mg/dL (0.0-0.3)
== END 2021-12-06 17:56 | disposition home or self-care (01) ==
LOC: NCHCN 17:55
PROVIDERS: PCP Family Medicine; Visit Provider Family Medicine
DX: R79.89 Other specified abnormal findings of blood chemistry (principal); M06.9 Rheumatoid arthritis, unspecified; Z00.00 Encounter for general adult medical examination without abnormal findings; G62.9 Polyneuropathy, unspecified
CPT/HCPCS: 80053; 80061; 85027; 85652; 82607; 83036; 84443; 86140

== ENCOUNTER 2022-01-23 04:34 | Outpatient (CLI) | payer OTHER, SELFPAY ==
[2022-01-23 15:53] LABS: ALT 95 U/L (16-63); AST 35 U/L (15-37); Albumin 4.3 g/dL (3.4-5.0); Alkaline Phosphatase 48 U/L (46-116); Anion Gap 9.9 mmol/L (3-11); BUN 12 mg/dL (7-18); Bilirubin, Total 0.5 mg/dL (0.2-1.0); CO2 25.1 mmol/L (21.0-32.0); Calcium 9.8 mg/dL (8.5-10.1); Chloride 106 mmol/L (98-107); Glucose 116 mg/dL (74-106); Potassium 4.2 mmol/L (3.5-5.1); Sodium 141 mmol/L (136-145); Total Protein 7.1 g/dL (6.4-8.2)
[2022-01-23 23:00] LABS: PSA, Screening 1.8 ng/mL (0.0-4.5)
== END 2022-01-23 04:35 | disposition home or self-care (01) ==
LOC: LBO 04:34
PROVIDERS: PCP Family Medicine; Visit Provider Nurse Practitioner Family
DX: Z00.00 Encounter for general adult medical examination without abnormal findings (principal); R79.89 Other specified abnormal findings of blood chemistry; M06.9 Rheumatoid arthritis, unspecified; G62.9 Polyneuropathy, unspecified; Z12.5 Encounter for screening for malignant neoplasm of prostate; Z79.899 Other long term (current) drug therapy
CPT/HCPCS: 36415; 80053; 84153

== ENCOUNTER 2022-02-13 03:08 | Outpatient (CLI) | payer OTHER, SELFPAY ==
[2022-02-14 13:56] LABS: COVID-19 RT-PCR UVMMC Result Negative (Negative)
== END 2022-02-13 03:09 | disposition home or self-care (01) ==
PROVIDERS: PCP Family Medicine; Visit Provider Nurse Practitioner Family
DX: Z20.822 Contact with and (suspected) exposure to COVID-19 (principal); Z01.818 Encounter for other preprocedural examination
CPT/HCPCS: U0003

== ENCOUNTER 2022-02-17 01:16 | Outpatient (RCR) | payer OTHER, SELFPAY | END 2022-03-18 23:59 | disposition home or self-care (01) | LOC: INF 01:16 | PROVIDERS: PCP Family Medicine; Visit Provider Family Medicine | DX: Z29.8 Encounter for other specified prophylactic measures (principal); D84.821 Immunodeficiency due to drugs; Z79.899 Other long term (current) drug therapy | CPT/HCPCS: 96372; Q0221 ==

== ENCOUNTER 2022-04-12 12:51 | Outpatient (REF) | payer OTHER, SELFPAY ==
[2022-04-12 15:25] LABS: HCT 45.4 % (40.0-50.0); HGB 15.4 g/dL (13.5-17.5); MCHC 33.9 % (32.0-36.0); MCV 94 fL (80-95); MPV 10.7 fL (8.0-11.0); Platelet Count 197 10^3/uL (130-400); RBC 4.81 10^6/uL (4.36-5.78); RDW 12.1 % (11.8-14.1); RDW-SD 42.4 fL
[2022-04-12 16:11] LABS: ALT 125 U/L (16-63); AST 103 U/L (15-37); Albumin 4.6 g/dL (3.4-5.0); Alkaline Phosphatase 57 U/L (46-116); BUN 14 mg/dL (7-18); Bilirubin, Total 0.7 mg/dL (0.2-1.0); Calcium 10.4 mg/dL (8.5-10.1); Chloride 109 mmol/L (98-107); Glucose 113 mg/dL (74-106); Potassium 4.6 mmol/L (3.5-5.1); Sodium 145 mmol/L (136-145); Total Protein 7.3 g/dL (6.4-8.2)
[2022-04-12 16:26] LABS: Creatine Kinase 1922 U/L (39-308)
== END 2022-04-12 12:52 | disposition home or self-care (01) ==
LOC: NCHCN 12:51
PROVIDERS: PCP Family Medicine; Visit Provider Family Medicine
DX: G62.9 Polyneuropathy, unspecified (principal); R79.89 Other specified abnormal findings of blood chemistry; Z00.00 Encounter for general adult medical examination without abnormal findings; E78.5 Hyperlipidemia, unspecified; M06.9 Rheumatoid arthritis, unspecified
CPT/HCPCS: 80053; 82550; 85027

== ENCOUNTER 2022-05-11 03:16 | Outpatient (CLI) | payer OTHER, SELFPAY ==
[2022-05-11 08:02] LABS: ALT 99 U/L (16-63); AST 35 U/L (15-37); Creatine Kinase 162 U/L (39-308)
== END 2022-05-11 03:17 | disposition home or self-care (01) ==
LOC: LBO 03:16
PROVIDERS: PCP Family Medicine; Visit Provider Family Medicine
DX: R79.89 Other specified abnormal findings of blood chemistry (principal); E78.5 Hyperlipidemia, unspecified; M06.9 Rheumatoid arthritis, unspecified
CPT/HCPCS: 36415; 82550; 84450; 84460

== ENCOUNTER 2023-01-16 02:24 | Outpatient (CLI) | payer OTHER, SELFPAY ==
[2023-01-16 14:49] LABS: Abs Immature Grans 0.01 10^3/uL (0.0-0.06); Absolute Basophil Count 0.06 10^3/uL (0.0-0.2); Absolute Eosinophil Count 0.97 10^3/uL (0.0-0.7); Absolute Lymphocyte Count 1.92 10^3/uL (1.2-3.4); Absolute Monocyte Count 0.48 10^3/uL (0.1-0.8); Absolute Neutrophil Count 3.32 10^3/uL (1.2-6.7); Basophils % 0.9; Eosinophils % 14.3; HCT 45.3 % (40.0-50.0); HGB 15.9 g/dL (13.5-17.5); Immature Grans % 0.1; Lymphocytes % 28.4; MCH 32.7 pg (27.0-33.0); MCHC 35.1 % (32.0-36.0); MCV 93 fL (80-95); MPV 9.6 fL (8.0-11.0); Monocytes % 7.1; Neutrophils % 49.2; Platelet Count 209 10^3/uL (130-400); RBC 4.86 10^6/uL (4.36-5.78); RDW 12.1 % (11.8-14.1); RDW-SD 42.2 fL; WBC 6.76 10^3/uL (4.4-10.8)
[2023-01-16 15:11] LABS: Hemoglobin A1C 5.3 % (<5.7)
[2023-01-16 15:38] LABS: C-Reactive Protein < 0.05 mg/dL (0.0-0.3)
[2023-01-16 15:46] LABS: Calculated LDL 169 mg/dL (<100); Cholesterol 269 mg/dL (<200); HDL Cholesterol 66 mg/dL (40-60); Triglyceride 172 mg/dL (<150)
[2023-01-16 23:30] LABS: PSA, Screening 2.7 ng/mL (<=4.5)
== END 2023-01-16 02:25 | disposition home or self-care (01) ==
LOC: LBO 02:24
PROVIDERS: Nurse Practitioner Family; PCP Family Medicine; Visit Provider Family Medicine
DX: E78.5 Hyperlipidemia, unspecified (principal); M06.9 Rheumatoid arthritis, unspecified; Z00.00 Encounter for general adult medical examination without abnormal findings; Z12.5 Encounter for screening for malignant neoplasm of prostate; D84.821 Immunodeficiency due to drugs; Z79.899 Other long term (current) drug therapy; M05.79 Rheumatoid arthritis with rheumatoid factor of multiple sites without organ or systems involvement
CPT/HCPCS: 36415; 80061; 84153; 83036; 85025; 86140

== ENCOUNTER 2023-01-24 02:47 | Outpatient (CLI) | payer OTHER, SELFPAY ==
[2023-01-24 08:53] LABS: ALT 45 U/L (16-63); AST 30 U/L (15-37); Albumin 4.7 g/dL (3.4-5.0); Alkaline Phosphatase 53 U/L (46-116); Anion Gap 9.3 mmol/L (3-11); BUN 19 mg/dL (7-18); Bilirubin, Total 0.7 mg/dL (0.2-1.0); CO2 27.7 mmol/L (21.0-32.0); Calcium 10.4 mg/dL (8.5-10.1); Chloride 104 mmol/L (98-107); Estimated GFR 83.01 (mL/min/1.73m2); Glucose 140 mg/dL (74-106); Potassium 3.8 mmol/L (3.5-5.1); Sodium 141 mmol/L (136-145); Total Protein 7.8 g/dL (6.4-8.2)
== END 2023-01-24 02:48 | disposition home or self-care (01) ==
LOC: LBO 02:47
PROVIDERS: PCP Family Medicine; Visit Provider Nurse Practitioner Family
DX: M05.79 Rheumatoid arthritis with rheumatoid factor of multiple sites without organ or systems involvement (principal); D84.821 Immunodeficiency due to drugs; Z79.899 Other long term (current) drug therapy
CPT/HCPCS: 80053

== ENCOUNTER 2023-09-22 05:17 | Emergency (ER) | payer OTHER, SELFPAY ==
[2023-09-22 05:20] VITALS: BP 217/107; PULSE 70; RESP 16; TEMP 36.5; O2SAT 99
--- NOTE | 2023-09-22 05:32 | W.ED.GENAD ---
Discharge Plan Disposition Patient Disposition: Home Condition: Good Discharge Details Clinical Impression: Kidney stone Primary Care Provider: Roshni Singh V ED Provider: Pretty Owens Home Meds and New Rx's Prescriptions: New tamsulosin [Flomax] 0.4 mg capsule 0.4 mg PO DAILY Qty: 14 0RF tamsulosin [Flomax] 0.4 mg capsule 0.4 mg PO DAILY Qty: 14 0RF No Action Actemra 200 mg/10 mL (20 mg/mL) solution IV trazodone 50 MG tablet 50 mg PO HS PRN sennosides-docusate sodium [Senna Laxative-Stool Softener] 1 EACH tablet 1 - 2 tab-cap PO DAILY prednisone 5 MG tablet 20 mg PO DIRECTED Rx Instructions: 5 day taper oxycodone 15 MG tablet 15 mg PO TID PRN hydrocortisone acetate 28.4 GM cream 1 applic Topical QID PRN fluticasone propionate [Flovent HFA] 10.6 GM HFA aerosol inhaler 10.6 gm Inhalation BID lorazepam 1 MG tablet 0.5 - 1 mg PO HS PRN albuterol sulfate [Proventil HFA] 6.7 GM HFA aerosol inhaler 2 puff Inhalation Q6H PRN cholecalciferol (vitamin D3) 2,000 UNIT tablet 2,000 unit PO DAILY medical marijuana Discharge Instructions Instructions: Kidney Stones (ED) Additional Instructions: Take the flomax once a day. Tylenol over the counter for pain, follow the directions on the bottle. Oxycodone as needed for breakthrough pain; a short course was given to you in the ED, please discuss with urology regarding additional. You will need to follow up with urology; they will call to schedule an appointment. Return to the emergency department for new or worsening symptoms, including fever, intolerable pain, inability to urinate, or if you have any other concerns. Referrals: [facility] [Provider Group] Roshni Singh MD [Primary Care Provider] - Discharge Data Discharge Date/Time-TO BE ENTERED AT DEPARTURE: 09/22/23 10:21 Medical Decision Making This is a 67-year-old male with an 11-year history of spinal stenosis and chronic lumbar pain. He was helping a friend with gardening 8 to 9 days ago and has had progressive low back pain similar to previous episodes only more severe. He has been on narcotics intermittently and tells me he does not like taking them but only has one 15 mg oxycodone left. He also takes lorazepam as a muscle relaxer. He has a prescription for Narcan which has . He has never tried lidocaine patches. He does not appear to have any numbness tingling or weakness in his leg. The pain occasionally radiates down the right leg but not below the knee. He tells me he has only one 15 mg oxycodone left and 1 lorazepam left. I am willing to write for ten 5 mg oxycodone tablets and lidocaine patches along with a new prescription for Narcan, but I am reluctant to write for both the benzodiazepine and oxycodone. He has not had any bowel or bladder incontinence or retention and denies any saddle anesthesia. I will discharge him home with the above medications and advised him to return for any new or worrisome symptoms. At this point there is no indication for radiographs. Medical Records Medical records reviewed: Yes I reviewed the patient's medical records. Imaging Data Radiologic Study: Imaging: CT Scan (Noncontrast CT abdomen and pelvis-pending at [facility]) Lab Data Lab results reviewed: Yes I reviewed the patient's lab results. Lab results narrative: Significant hematuria on dip, urinalysis is sent and confirms RBCs. Normal white count normal H&H, slight left shift. GFR 66.70. Trace leukocyte esterase HPI General Date/Time Provider Initiated Documentation: 09/22/23 05:32. Limitations to Documentation: no limitations. Information obtained by: patient and family (). History of Present Illness with intensity rated at 5. Quality is described as stabbing, sharp and constant, Patient did receive the following treatments prior to arrival, NSAID HPI Narrative: Time seen was 5:33 AM in bed 4. The patient is a 67-year-old male with chronic lumbar back pain for 11 years. He tells me he has had MRIs and was seen at [facility] initially. They did not recommend surgery. He has been on disability for his back. 89 years ago he was helping a friend with gardening and the next day began having increased low back pain which is similar to his previous episodes except that the pain was more severe. The pain is primary located in the right hip and radiates down the right leg but not past the knee. He denies any saddle anesthesia, numbness, tingling or weakness in his legs. He has had some intermittent abdominal discomfort and intermittent diarrhea since receiving a COVID booster. He denies any bowel or bladder incontinence or retention. He tells me he usually takes 15 mg of oxycodone for his pain as well as lorazepam. These are prescribed by his primary care provider. He has taken ibuprofen Profen and acetaminophen without relief. The pain is prohibiting him from sleeping. He has noted slight increased frequency of urination but denies any bowel or bladder incontinence retention or hematuria. He denies any fevers or chills. Currently the pain is 5 out of 10 in severity and described as sharp. It is primarily located in the right lower back and hip. It is aggravated by movement. He tells me he has never tried lidocaine patches but was not able to tolerate fentanyl patches and reacted to the adhesive. The pain is constant. He denies any chest pain or shortness of breath. He also tells me he has had some prolonged use of narcotics but has weaned himself off without any withdrawal symptoms. He says he is taken 1 to 2 tablets over the past 8 to 9 days. He also has a Narcan prescription but he believes it is out of date. He does have an appointment with his primary care provider in November. I told him I would be willing to write him prescriptions for 5 mg oxycodone, lidocaine patches and Narcan but I was not comfortable prescribing lorazepam or a higher dose of narcotics. Related Data Home Medications Medication Instructions Recorded Confirmed albuterol sulfate 90 mcg/actuation 2 puff inhalation Q6H PRN 09/20/16 09/22/23 aerosol inhaler (Proventil HFA) cholecalciferol (vitamin D3) 50 2,000 unit PO DAILY 09/20/16 09/22/23 mcg (2,000 unit) tablet fluticasone propionate 44 10.6 gm inhalation BID 09/20/16 09/22/23 mcg/actuation HFA aerosol inhaler (Flovent HFA) hydrocortisone acetate 0.5 % 1 applic topical QID PRN 09/20/16 09/22/23 topical cream lorazepam 1 mg tablet 0.5 - 1 mg PO HS PRN 09/20/16 09/22/23 oxycodone 15 mg tablet 15 mg PO TID PRN 09/20/16 09/22/23 prednisone 5 mg tablet 20 mg PO DIRECTED 09/20/16 09/22/23 sennosides 8.6 mg-docusate sodium 1 - 2 tab-cap PO DAILY 09/20/16 09/22/23 50 mg tablet (Senna Laxative-Stool Softener) trazodone 50 mg tablet 50 mg PO HS PRN 09/20/16 09/22/23 tocilizumab 200 mg/10 mL (20 IV 10/14/18 11/25/18 mg/mL) intravenous solution (Actemra) medical marijuana 09/22/23 tamsulosin 0.4 mg capsule (Flomax) 0.4 mg PO DAILY #14 caps 09/22/23 tamsulosin 0.4 mg capsule (Flomax) 0.4 mg PO DAILY #14 caps 09/22/23 Previous Rx's Medication Instructions Recorded tamsulosin 0.4 mg capsule (Flomax) 0.4 mg PO DAILY #14 caps 09/22/23 tamsulosin 0.4 mg capsule (Flomax) 0.4 mg PO DAILY #14 caps 09/22/23 Allergies Allergy/AdvReac Type Severity Reaction Status Date / Time trihexyphenidyl Allergy Severe Dizziness/L Unverified 09/22/23 06:30 ightheade adalimumab [From Humira] Allergy Intermediate Hives Unverified 09/22/23 06:30 gabapentin Allergy Intermediate Hives Unverified 09/22/23 06:30 ibuprofen [From Advil] Allergy Intermediate Hives Unverified 09/22/23 06:30 leflunomide [From Arava] Allergy Intermediate Hives Unverified 09/22/23 06:30 pregabalin [From Lyrica] Allergy Intermediate Hives Unverified 09/22/23 06:30 tapentadol HCl [From Nucynta] AdvReac Intermediate GI Upset Unverified 09/22/23 06:30 and Rash venlafaxine AdvReac Intermediate Headache Unverified 09/22/23 06:30 duloxetine HCl AdvReac Mild Skin Rash Unverified 09/22/23 06:30 [From Cymbalta] methadone AdvReac Unverified 09/22/23 06:30 General Stated Complaint: Nk/Back Pain TONIE: 4 Review of Systems Narrative: see hpi Respiratory Comments: The patient does have a history of bronchospasm and has an inhaler at home. He has not been using it today. PFSH All Active Problems (Updated 09/22/23 @ 09:53 by Pretty Owens MD) Kidney stone (Chronic) Degenerative joint disease of right knee (Chronic) Medical History Eczema Dyslipidemia Lymphocytic colitis Asthma Vitamin D deficiency Cervical spondylosis Spinal stenosis of lumbar region Anterior uveitis Long-term use of immunosuppressant medication Seropositive rheumatoid arthritis of multiple sites Chronic pain syndrome Depression Parkinsons disease Social History Smoking/Tobacco Use Status: Former Tobacco Use Smoking risk assessment performed?: Yes Alcohol Intake: never Drug use: Daily Substance use type: marijuana Do you feel safe at home: Yes Do you feel safe in your relationship?: Yes Exam Narrative Exam Narrative: The patient is a well-developed well-nourished male lying on the bed in no acute distress. He was initially hypertensive with a blood pressure of 217/107. He was not tachycardic tachypneic or febrile. He had a normal room air O2 sat of 99% on room air which is normal. Const General: cooperative, healthy appearing, comfortable, no acute distress, well developed, well groomed and well hydrated Nutritional Appearance: average body habitus and well nourished Orientation: alert, awake and oriented x3 HENMT Head: normal to inspection, normocephalic and atraumatic Ears: hearing grossly normal bilaterally and external ears normal General nose exam: external nose normal, nares normal and no nasal discharge Face and sinus: normal facial exam, sinuses nontender and face symmetric Mouth: lip normal and other (Normal phonation. The patient is handling secretions.) Eyes General: appearance normal, both eyes and all related structures Eyelids: eyelids normal Conjunctivae: conjunctivae normal Sclera: sclerae normal Cornea: corneas normal Pupils: PERRL EOM: EOM intact bilaterally and No nystagmus Neck Neck: normal visual inspection, full ROM, no lymphadenopathy, no meningeal signs, trachea midline and supple Chest Chest: normal inspection of the chest Resp Effort & Inspection: normal respiratory effort, able to speak in complete sentences, no audible wheezes, no nasal flaring, no respiratory distress, no retractions, no stridor, not tachypneic, no tracheal deviation, no use of accessory muscles, No prolonged expiratory phase and other (Normal inspiratory to expiratory ratio.) Auscultation: clear to auscultation bilaterally, no rales, no rhonchi, wheezes (The patient has occasional diffuse end expiratory wheezing.) and no rubs Tactile Fremitus: tactile fremitus absent Cardio Jugular venous pressure: no JVD Palpation: normal PMI Rate: regular rate Rhythm: regular rhythm Heart Sounds: S1 normal, S2 normal, no gallops, no murmurs and no rubs GI Inspection: normal to inspection and non-distended Palpation: soft, no hepatosplenomegaly, no guarding and nontender Percussion: normal to percussion Auscultation: normal bowel sounds General: No CVA tenderness Other: The patient has sensation in his buttocks. Back/Spine/Pelvis Back: no CVA tenderness and No back tenderness Cervical Spine: normal cervical lordosis, cervical ROM normal, No cervical muscular tenderness, No pain with cervical ROM, No cervical spinal tenderness and No step off deformity Thoracic/Lumbar Spine: thoracic and lumbar spine normal to inspection, No thoracic spinal tenderness and No lumbar spinal tenderness Other: The patient had a negative straight leg raise bilaterally. Skin General skin exam: no rashes or lesions noted, turgor normal, no petechiae, no purpura and other (Skin is normal for ethnicity.) Lesions: no lesions Rashes: no rashes Trauma: no lacerations or abrasions Neuro General: patient alert, patient awake, patient oriented x3, moves all extremities, no meningeal signs, no focal motor deficits and CN's II-XI intact bilaterally Cranial Nerves: CN's II-XI intact bilaterally, PERRL, accommodation normal, EOM intact bilaterally, no nystagmus, facial strength normal, tongue midline, hearing normal and no nystagmus Cognition: normal cognition Speech: speech normal Gait: normal gait Motor: muscle tone normal throughout and strength 5/5 throughout Sensory Exam: no sensory deficits noted DTR's: Rt Patellar: 2+, Lt Patellar: 2+, Rt Ankle: 1+ and Lt Ankle: 1+ Plantar Reflexes: Downgoing: bilateral Other: The patient has a negative straight leg raise bilaterally. Motor function is 5 out of 5 in his quadriceps hamstring gastroc Dorsi and plantarflexion of his toes. There are no sensory deficits. Reflexes are 2+ in his patellas and 1+ in his ankle jerks. Extrem General: normal to inspection, full ROM, capillary refill normal, no clubbing, cyanosis or edema and no calf tenderness Other: Distal pulses are intact. No embolic lesions. Psych Appearance: grossly normal Affect: normal affect Attitude: cooperative Thought Process: normal Thought Content: normal Insight: insight good Judgment: judgment good Other: The patient appears to have capacity make medical decisions. Course The patient has a large amount of blood in the urine. We will check a CBC and a basic metabolic panel obtain a noncontrast CT to rule out renal colic and to check his renal function. I have notified the patient who voices agreement with the plan. Reevaluation(s) Initial Evaluation: The patient had continued pain after IV acetaminophen and I wrote for 4 mg of IV morphine prior to signout. Vital Signs Vital signs: Vital Signs Temperature 36.5 C 09/22/23 05:20 Pulse 70 09/22/23 05:20 Respiratory Rate 16 09/22/23 05:20 Blood Pressure 217/107 H 09/22/23 05:20 Pulse Oximetry 99 09/22/23 05:20 Temperature 36.5 C 09/22/23 05:20 Temperature Source Temporal Artery Scan 09/22/23 05:20 Pulse 70 09/22/23 05:20 Respiratory Rate 16 09/22/23 05:20 Respiratory Effort Normal, Non-Labored 09/22/23 05:22 Blood Pressure 217/107 H 09/22/23 05:20 Blood Pressure Position Sitting 09/22/23 05:20 Pulse Oximetry 99 09/22/23 05:20 Oxygen Delivery Method Room Air 09/22/23 05:20 Oxygen Flow Rate 0 09/22/23 05:20 Pain Level 10 09/22/23 05:23 Sign Out Sign Out Data: Sign Out Comment: This is a 67-year-old male with 11-year history of spinal stenosis who presents with 8 days of right sided back pain radiating occasionally to the right thigh. Urinalysis demonstrated hematuria. Noncontrast CT is pending. If he is positive for renal colic he should get a strainer and should follow-up with urology for nephrolithiasis or hematuria without nephrolithiasis. Last updated by Thran,Ana Nishi, MD at 09/22/23 08:01
[2023-09-22] MEDS: oxyCODONE 15 MG TAB PO (06:00)
--- NOTE | 2023-09-22 06:15 | DI.CT_ITS ---
Exam(s) CT ABDOMEN PELVIS WO EXAM: CT ABDOMEN PELVIS WO CLINICAL HISTORY: hematuria and back pain. TECHNIQUE: Imaging Protocol: Axial computed tomography images with coronal and sagittal reformatted images were created and reviewed. COMPARISON: No priors for comparison. FINDINGS: The examination is limited due to patient motion artifact. ABDOMEN: Lung Bases: There is a calcified granuloma in the left lower lobe. There is scarring seen in the lef t lingula and left lower lobe. Liver: Normal density. Multiple hepatic cysts are present. Gallbladder and biliary tract: No radiodense calculus or biliary ductal dilation. Pancreas: Normal density, no abnormal calcifications or inflammatory process. Spleen: Normal. Kidneys: Normal size, contour and axis.Bilateral nephrolithiasis. No evidence of obstructive uropath y on the left. There is a 4 mm stone at the right UVJ. There is an 9 mm stone at the right UPJ. Mo derately severe right hydronephrosis is present. No masses seen. Adrenal glands: No mass is seen. Lymph nodes: Within normal limits. Abdominal Aorta: Abdominal portion non-dilated. Atherosclerosis. PELVIS: Bladder:The urinary bladder is incompletely distended. There is mild thickening of the wall of the u rinary bladder likely reflecting underdistention. Bowel: No obstruction or bowel wall thickening. Appendix is unremarkable. Peritoneal cavity: No ascites, collection or mesenteric inflammatory response. No free air. Reproductive organs: There is an enlarged prostate gland. Bones: Within normal limits. Soft Tissues: Within normal limits. IMPRESSION: 1. Right ureteral calculi causing moderately severe right hydronephrosis. There is a 9 mm right UPJ calculus and a 4 mm right UVJ calculus. 2. Mild urinary bladder wall thickening. This may be due to underdistention. Cystitis, muscular hyp ertrophy or neoplasm cannot be entirely excluded. Please correlate clinically. RADIATION DOSE DELIVERED: Total DLP DATA REPOSITORY: All CT scans at this facility are submitted to the National Radiology Data Registry (NRDR) Dose Index Registry (DIR) with the [employer] (ACR). RADIATION OPTIMIZATION: All CT scans at this facility use at least one of these dose optimization te chniques: automated exposure control; mA and/or kV adjustment per patient size (includes targeted exa ms where dose is matched to clinical indication); or iterative reconstruction.
[2023-09-22 06:28] LABS: Abs Immature Grans 0.02 10^3/uL (0.0-0.06); Absolute Basophil Count 0.04 10^3/uL (0.0-0.2); Absolute Eosinophil Count 0.05 10^3/uL (0.0-0.7); Absolute Lymphocyte Count 1.02 10^3/uL (1.2-3.4); Absolute Monocyte Count 0.61 10^3/uL (0.1-0.8); Absolute Neutrophil Count 7.05 10^3/uL (1.2-6.7); Basophils % 0.5; Eosinophils % 0.6; HCT 44.5 % (40.0-50.0); HGB 15.4 g/dL (13.5-17.5); Immature Grans % 0.2; Lymphocytes % 11.6; MCH 31.6 pg (27.0-33.0); MCHC 34.6 % (32.0-36.0); MCV 91 fL (80-95); MPV 9.3 fL (8.0-11.0); Monocytes % 6.9; Neutrophils % 80.2; Platelet Count 199 10^3/uL (130-400); RBC 4.87 10^6/uL (4.36-5.78); RDW 11.5 % (11.8-14.1); WBC 8.79 10^3/uL (4.4-10.8)
[2023-09-22 06:30] LABS: Bilirubin Negative (Negative); Blood Large (Negative); Clarity Clear (Clear); Glucose Negative (Negative); Ketones 15 mg/dL (Negative); Leukocyte Esterase Trace (Negative); Nitrite Negative (Negative); Specific Gravity >= 1.030 (1.005-1.025); Urobilinogen 0.2 mg/dL (Up to 0.2); pH 5.5 (5-8)
[2023-09-22 06:37] LABS: Bacteria Rare HPF (Negative); C & S Indicated? Yes; Casts Negative LPF (Negative); Crystals Negative HPF (Negative); Epithelial Cells Negative HPF (Negative); Mucus Negative (Negative); RBC >50 HPF (0-2)
[2023-09-22 06:44] LABS: Anion Gap 8.6 mmol/L (3-11); BUN 19 mg/dL (7-18); CO2 25.4 mmol/L (21.0-32.0); CREATININE 1.2 mg/dL (0.70-1.30); Calcium 10.4 mg/dL (8.5-10.1); Chloride 104 mmol/L (98-107); Glucose 124 mg/dL (74-106); Potassium 4.1 mmol/L (3.5-5.1); Sodium 138 mmol/L (136-145)
--- NOTE | 2023-09-22 08:08 | DI.VRAD_ITS ---
PROCEDURE INFORMATION: Exam: CT Abdomen And Pelvis Without Contrast Exam date and time: 09/22/2023 6:44 AM Age: 67 years old Clinical indication: Other: Hematuria; Other: Back pain TECHNIQUE: Imaging protocol: Computed tomography of the abdomen and pelvis without contrast. COMPARISON: No relevant prior studies are available for comparison. FINDINGS: Limitations: Mild motion artifact. No contrast was administered, limiting evaluation for some pathologies. Liver: Multiple hepatic cysts. Gallbladder and bile ducts: No radiodense gallbladder calculi seen. Pancreas: No CT evidence for acute pancreatitis. Spleen: No splenomegaly. Adrenal glands: Adrenal thickening. Kidneys and ureters: Right hydroureteronephrosis with adjacent stranding. 10 mm calculus in the proximal right ureter. 2-3 mm calculus at the right ureterovesical junction. No left hydronephrosis. Stomach and bowel: No intestinal obstruction appreciated. Appendix: No evidence of appendicitis. Intraperitoneal space: No free air. Vasculature: Extensive arterial calcifications. Lymph nodes: Nonspecific mesenteric and retroperitoneal lymph nodes. Urinary bladder: Mild bladder wall thickening. Reproductive: Enlarged prostate with calcifications. Bones/joints: No pertinent acute abnormality seen. Soft tissues: No pertinent acute abnormality seen. IMPRESSION: 1. Right ureteral calculi with hydroureteronephrosis as described above. 2. Thickening of the urinary bladder likely secondary to incomplete distension. Underlying cystitis, muscular hypertrophy, or neoplasm not excluded. Please correlate clinically. 3. Additional findings as above. Dictated and Authenticated by: Veda Bowie MD. Ordering:GWENDOLYN Perez MD
--- NOTE | 2023-09-22 08:13 | ED.PROG_ITS ---
Date of service: 09/22/23 Time of Service: 07:45 Medical Decision Making This patient was signed out to me. Please see previous notes for H&P and initial eval. In brief, 67yo M presenting with back & flank pain. UA with hematuria. Signed out pending CT read. CT as below, 9mm proximal right uretral stone and smaller stone at RVJ, right sided hydronephrosis. UA reviewed, negative for nitrate, does have small amount of WBC and leuk esterace likely 2/t degree of hematuria. Systemically well, no fevers, would not treat as infected stone. Size of stone may require urologic intervention. On reassessment patient reports pain is much improved, feeling better, requesting discharge home. Discussed with urology at [facility]; will likely need stent. I discussed with Mr. Manning the option of admission/transfer today vs going home to followup in clinic this week, he would prefer discharge home at this time which is reasonable. Provider with urine strainer, prescribed flomax, short course of oxycodone. Referral for urology placed. Discharged home; discharge instructions including return precautions were reviewed with patient who verbalized understanding. All questions were answered and they are in full agreement with the plan. Imaging Data Radiologic Study: Imaging: CT Scan Radiologist's impression: IMPRESSION: 1. Right ureteral calculi causing moderately severe right hydronephrosis. There is a 9 mm right UPJ calculus and a 4 mm right UVJ calculus. 2. Mild urinary bladder wall thickening. This may be due to underdistention. Cystitis, muscular hypertrophy or neoplasm cannot be entirely excluded. Please correlate clinically Lab Data Lab results reviewed: Yes I reviewed the patient's lab results. Sign Out Sign Out Data: Sign Out Comment: This is a 67-year-old male with 11-year history of spinal stenosis who presents with 8 days of right sided back pain radiating occasionally to the right thigh. Urinalysis demonstrated hematuria. Noncontrast CT is pending. If he is positive for renal colic he should get a strainer and should follow-up with urology for nephrolithiasis or hematuria without nephrolithiasis. Last updated by Ana Fontanez MD at 09/22/23 08:01 Discharge Plan Disposition Patient Disposition: Home Condition: Good Discharge Details Clinical Impression: Kidney stone Primary Care Provider: Roshni Singh V ED Provider: Pretty Owens Home Meds and New Rx's Prescriptions: New tamsulosin [Flomax] 0.4 mg capsule 0.4 mg PO DAILY Qty: 14 0RF tamsulosin [Flomax] 0.4 mg capsule 0.4 mg PO DAILY Qty: 14 0RF No Action Actemra 200 mg/10 mL (20 mg/mL) solution IV trazodone 50 MG tablet 50 mg PO HS PRN sennosides-docusate sodium [Senna Laxative-Stool Softener] 1 EACH tablet 1 - 2 tab-cap PO DAILY prednisone 5 MG tablet 20 mg PO DIRECTED Rx Instructions: 5 day taper oxycodone 15 MG tablet 15 mg PO TID PRN hydrocortisone acetate 28.4 GM cream 1 applic Topical QID PRN fluticasone propionate [Flovent HFA] 10.6 GM HFA aerosol inhaler 10.6 gm Inhalation BID lorazepam 1 MG tablet 0.5 - 1 mg PO HS PRN albuterol sulfate [Proventil HFA] 6.7 GM HFA aerosol inhaler 2 puff Inhalation Q6H PRN cholecalciferol (vitamin D3) 2,000 UNIT tablet 2,000 unit PO DAILY medical marijuana Discharge Instructions Instructions: Kidney Stones (ED) Additional Instructions: Take the flomax once a day. Tylenol over the counter for pain, follow the directions on the bottle. Oxycodone as needed for breakthrough pain; a short course was given to you in the ED, please discuss with urology regarding additional. You will need to follow up with urology; they will call to schedule an appointment. Return to the emergency department for new or worsening symptoms, including fever, intolerable pain, inability to urinate, or if you have any other concerns. Referrals: [facility] [Provider Group] Roshni Singh MD [Primary Care Provider] -
[2023-09-22] MEDS: Acetaminophen 500 MG TAB 1000 MG PO (08:46)
[2023-09-22 09:31] VITALS: BP 166/99; PULSE 58; RESP 16; O2SAT 99
--- NOTE | 2023-09-22 09:32 | NUR.NOTE ---
Nursing Note:patient reprots o thsi RN that he is ready to wrap it up here pain 0/10using verbal pain scale. Provider aware
--- NOTE | 2023-09-22 09:33 | NUR.NOTE ---
Pt is referred to Urology for a kidney stone and needs to be seen as soon as possible
== END 2023-09-22 10:21 | disposition home or self-care (01) ==
PROVIDERS: Emergency Medicine Emergency Medical Services; Emergency Provider Student in an Organized Health Care Education/Training Program; PCP Family Medicine
DX: N20.0 Calculus of kidney (principal); N13.2 Hydronephrosis with renal and ureteral calculous obstruction
CPT/HCPCS: 00123; 80048; 96374; 99284; 74176; 81003; 81015; 85025; 87086

== ENCOUNTER 2023-10-01 09:18 | Day surgery (SDC) | payer OTHER, SELFPAY ==
[2023-10-01 09:29] VITALS: BP 175/87; PULSE 58; RESP 16; TEMP 36.4; O2SAT 98
[2023-10-01] MEDS: Lactated Ringers 1,000 ML 80 ML IV (10:12)
--- NOTE | 2023-10-01 11:42 | W.ANESPRE ---
General Info Date of Service Date Performed: 10/01/23 Height: 5 ft 10 in Weight: 75.8 kg Body Mass Index (BMI): 24.0 Surgical Procedure: Operation Date: 10/01/23 12:55 Proposed Procedure Side Surgeon p Cystoscopy/Laser/Retrograde/Ureteroscopy, stone manipulation, stent Right Claus Bartholomew MD Meds Allergies and Home Medications Allergies Allergy/AdvReac Type Severity Reaction Status Date / Time trihexyphenidyl Allergy Severe Dizziness/L Unverified 10/01/23 09:49 ightheade adalimumab [From Humira] Allergy Intermediate Hives Unverified 10/01/23 09:49 gabapentin Allergy Intermediate Hives Unverified 10/01/23 09:49 ibuprofen [From Advil] Allergy Intermediate Hives Unverified 10/01/23 09:49 leflunomide [From Arava] Allergy Intermediate Hives Unverified 10/01/23 09:49 pregabalin [From Lyrica] Allergy Intermediate Hives Unverified 10/01/23 09:49 methadone AdvReac Severe Unverified 10/01/23 09:49 tapentadol HCl [From Nucynta] AdvReac Intermediate GI Upset Unverified 10/01/23 09:49 and Rash venlafaxine AdvReac Intermediate Headache Unverified 10/01/23 09:49 duloxetine HCl AdvReac Mild Skin Rash Unverified 10/01/23 09:49 [From Cymbalta] Home Medication Medication Instructions Recorded albuterol sulfate 90 mcg/actuation 2 puff inhalation Q6H PRN 09/20/16 aerosol inhaler (Proventil HFA) cholecalciferol (vitamin D3) 50 2,000 unit PO DAILY 09/20/16 mcg (2,000 unit) tablet fluticasone propionate 44 10.6 gm inhalation BID 09/20/16 mcg/actuation HFA aerosol inhaler (Flovent HFA) hydrocortisone acetate 0.5 % 1 applic topical QID PRN 09/20/16 topical cream lorazepam 1 mg tablet 0.5 - 1 mg PO HS PRN 09/20/16 oxycodone 15 mg tablet 15 mg PO TID PRN 09/20/16 sennosides 8.6 mg-docusate sodium 1 - 2 tab-cap PO DAILY 09/20/16 50 mg tablet (Senna Laxative-Stool Softener) trazodone 50 mg tablet 50 mg PO HS PRN 09/20/16 tocilizumab 200 mg/10 mL (20 162 mg IV .weekly 10/14/18 mg/mL) intravenous solution (Actemra) medical marijuana 09/22/23 tamsulosin 0.4 mg capsule (Flomax) 0.4 mg PO DAILY #14 caps 09/22/23 Current Visit Medications: Current Medications Generic Name Dose Route Start Last Admin Trade Name Elizabeth PRN Reason Stop Dose Admin Ringer's Solution 1,000 mls @ 80 mls/hr 10/01/23 06:00 10/01/23 10:12 IV 10/01/23 23:59 80 mls/hr INFUSION FROYLAN Administration Cefazolin Sodium/Dextrose 2 gm in 50 mls @ 100 mls/hr 10/01/23 06:00 Ancef Duplex IVPB 10/01/23 23:59 PREOP FROYLAN IV Miscellaneous Supplies 1 each 10/01/23 06:00 Iv Access IV 10/01/23 23:59 DIRECTED FROYLAN Sodium Chloride 0 ml 10/01/23 06:00 Normal Saline Flush 10 Ml Syr IV 10/01/23 23:59 PRN PRN Sodium Chloride 0 ml 10/01/23 06:00 Normal Saline 10 Ml Vial IJ 10/01/23 23:59 DIRECTED PRN Sterile Water 0 ml 10/01/23 06:00 Water,Injection,Sterile 10 Ml Vial IJ 10/01/23 23:59 DIRECTED PRN PFSH Active Problems Active Problems: Problem Status Onset Code Kidney stone N20.0 Degenerative joint disease of right knee M17.11 Medical History Medical History Eczema Dyslipidemia Lymphocytic colitis Asthma Vitamin D deficiency Cervical spondylosis Spinal stenosis of lumbar region Anterior uveitis Long-term use of immunosuppressant medication Seropositive rheumatoid arthritis of multiple sites Chronic pain syndrome Depression Parkinsons disease 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5) 09/22/23 06:24 Hematocrit 44.5 % (40.0-50.0) 09/22/23 06:24 Platelet Count 199 10^3/uL (130-400) 09/22/23 06:24 Complete Metabolic Panel: Sodium 138 mmol/L (136-145) 09/22/23 06:24 Potassium 4.1 mmol/L (3.5-5.1) 09/22/23 06:24 Chloride 104 mmol/L (98-107) 09/22/23 06:24 Carbon Dioxide 25.4 mmol/L (21.0-32.0) 09/22/23 06:24 BUN 19 mg/dL (7-18) H 09/22/23 06:24 Creatinine 1.2 mg/dL (0.70-1.30) 09/22/23 06:24 Est GFR (CKD-EPI 2020) 66.70 (mL/min/1.73m2) 09/22/23 06:24 Calcium 10.4 mg/dL (8.5-10.1) H 09/22/23 06:24 Glucose 124 mg/dL (74-106) H 09/22/23 06:24 Liver Function Panel: No Data to Display Coagulation Panel: No Data to Display Cardiac Panel: No Data to Display Arterial Blood Gas: No Data to Display Venous Blood Gas: No Data to Display Pancreas Panel: No Data to Display Thyroid Panel: No Data to Display Infectious Disease: No Data to Display Blood Cultures: No Data to Display Toxicology Panel: No Data to Display Anesthesia Assessment and Plan Anesthesia History Personal History: No History of Anesthesia Complications Family History: No Family History of Anesthesia Complications Exercise Tolerance Exercise Tolerance: Metabolic Equivalents>4 Cardiac & Pulmonary Exam Cardiac Exam: Normal S1/S2 Heart Sounds Pulmonary Exam: Clear Bilateral Breath Sounds Implantable Cardiac Device Does patient have a Pacemaker or an ICD?: No Airway Exam Known Difficult Airway: No Mouth Opening: Normal (> 3cm) Thyromental Distance: Greater than 3 cm Neck Range of Motion: Full ROM Neck Circumference: Normal ASA Classification Emergency Case?: No NPO Status NPO Status: NPO Clears >2 hours, Solids >8 hours Anesthesia Plan Resuscitation Status: Full Code Anesthesia Technique: General Anesthesia Monitors Used: Standard Monitors
--- NOTE | 2023-10-01 13:15 | ANES_ITS ---
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 His reactions are moderate to severe to include, rash, hives, blistering and breathing issues per patient. Reviewed allergy list in [facility] [place] and possible products that may contain them. Since all of our airway equipment is some form of plastic, we discussed sending him to a tertiary care center to proceed with his procedure where multiple specialties could intervene if an adverse outcome were to occur. Dr. Bartholomew and myself discussed this reasoning with the patient who agrees to transfer care to [facility].
--- NOTE | 2023-10-01 13:22 | SUR.INTRAOP ---
10/01/23 Case cancelled due to pt severe allergies to plastics.
== END 2023-10-01 09:19 | disposition home or self-care (01) ==
LOC: SUR 09:18
PROVIDERS: PCP Family Medicine; Visit Provider Urology
DX: Z53.09 Procedure and treatment not carried out because of other contraindication (principal)

== ENCOUNTER → 2023-12-06 03:01 | Outpatient (CLI) | payer OTHER, SELFPAY ==
--- NOTE | 2023-12-06 | DI.CT_ITS ---
Exam(s) CT ABDOMEN PELVIS WO EXAM: CT ABDOMEN PELVIS WO CLINICAL HISTORY: RT URETERAL STONE,N20.1,EVAL LOCATION. TECHNIQUE: Imaging Protocol: Axial computed tomography images with coronal and sagittal reformatted images were created and reviewed. Oral: no COMPARISON: CT CT ABDOMEN PELVIS WO from 09/22/2023 CR XR ABDOMEN FLAT PLATE from 12/06/2023 FINDINGS: Lung Bases: No acute findings. Liver: Normal density. No measurable mass. Gallbladder and biliary tract: No radiodense calculus or dilation. Pancreas: Normal density, no abnormal calcifications or inflammatory process. Spleen: Normal. Kidneys: Normal size, contour and axis. No change in position of the previously noted stone at the ri ght ureteropelvic junction measuring 9 by 11 millimeters. no change in moderate right hydronephrosis. Three millimeter stone again noted at the right ureterovesical junction. Two tiny nonobstructing s tones noted in right kidney. No suspicious masses seen. Adrenal glands: No masses seen. Lymph nodes: Within normal limits. Vasculature: Abdominal aorta non-dilated. Soft tissues: Unremarkable. Bladder: No wall thickening. No mass or calculi. Bowel: No obstruction or bowel wall thickening. Appendix normal. Peritoneal cavity: No ascites, collection or mesenteric inflammatory response. Reproductive organs: Prostate mildly enlarged. Unremarkable. Bones: Degenerative disc changes. IMPRESSION: No change in position of the 9 x 11 millimeter right ureteropelvic junction calculus. No change in p osition of 3 millimeter right ureteral vesicle junction calculus. Stable moderate right hydronephros is. RADIATION DOSE DELIVERED: 806.59mGy.cm Total DLP DATA REPOSITORY: All CT scans at this facility are submitted to the National Radiology Data Registry (NRDR) Dose Index Registry (DIR) with the [employer] ([employer]). RADIATION OPTIMIZATION: All CT scans at this facility use at least one of these dose optimization te chniques: automated exposure control; mA and/or kV adjustment per patient size (includes targeted exa ms where dose is matched to clinical indication); or iterative reconstruction.
--- NOTE | 2023-12-06 | DI.RAD_ITS ---
Exam(s) XR ABDOMEN FLAT PLATE EXAM: 2D digital imaging was performed. CLINICAL HISTORY: RT URETERAL STONE, N20.1. COMPARISON: CT CT ABDOMEN PELVIS WO from 12/06/2023 TECHNIQUE: Supine views of the abdomen performed. FINDINGS: BOWEL GAS PATTERN: Nondistended. Bowel gas and stool good obscure visualization of urinary tract ca lculi. CALCIFICATIONS: Question faintly visualized on density in the expected location of the right ureterov esical junction. The larger calcification seen at the right ureteropelvic junction is not definitely visualized. OSSEOUS STRUCTURES: Degenerative changes in the spine. OTHER FINDINGS: None. IMPRESSION: 1. Nonobstructive bowel gas pattern. 2. Large stone right ureteropelvic junction not definitely visualized. Question of faintly visualize d stone in the right ureterovesical junction versus phlebolith. DATA REPOSITORY: RADIATION DOSE DELIVERED:
== END ==
PROVIDERS: PCP Family Medicine; Visit Provider Student in an Organized Health Care Education/Training Program
DX: N13.39 Other hydronephrosis (principal)
CPT/HCPCS: 74018; 74176

== ENCOUNTER 2024-01-31 03:03 | Outpatient (CLI) | payer OTHER, SELFPAY ==
[2024-01-31 10:48] LABS: Abs Immature Grans 0.02 10^3/uL (0.0-0.06); Absolute Basophil Count 0.06 10^3/uL (0.0-0.2); Absolute Eosinophil Count 0.74 10^3/uL (0.0-0.7); Absolute Lymphocyte Count 1.78 10^3/uL (1.2-3.4); Absolute Monocyte Count 0.69 10^3/uL (0.1-0.8); Absolute Neutrophil Count 5.15 10^3/uL (1.2-6.7); Basophils % 0.7; Eosinophils % 8.8; HCT 42.7 % (40.0-50.0); HGB 14.2 g/dL (13.5-17.5); Immature Grans % 0.2; Lymphocytes % 21.1; MCH 30.8 pg (27.0-33.0); MCHC 33.3 % (32.0-36.0); MCV 93 fL (80-95); MPV 9.9 fL (8.0-11.0); Monocytes % 8.2; Platelet Count 277 10^3/uL (130-400); RBC 4.61 10^6/uL (4.36-5.78); RDW 12.2 % (11.8-14.1); RDW-SD 41.6 fL; WBC 8.44 10^3/uL (4.4-10.8)
[2024-01-31 11:44] LABS: ALT 35 U/L (16-63); AST 23 U/L (15-37); Albumin 4.3 g/dL (3.4-5.0); Alkaline Phosphatase 75 U/L (46-116); Anion Gap 9.8 mmol/L (3-11); BUN 17 mg/dL (7-18); Bilirubin, Total 0.4 mg/dL (0.2-1.0); CO2 29.2 mmol/L (21.0-32.0); CREATININE 1.1 mg/dL (0.70-1.30); Calcium 10.4 mg/dL (8.5-10.1); Chloride 104 mmol/L (98-107); Estimated GFR 73.58 (mL/min/1.73m2); Glucose 127 mg/dL (74-106); Potassium 4.5 mmol/L (3.5-5.1); Sodium 143 mmol/L (136-145); Total Protein 8.1 g/dL (6.4-8.2)
[2024-01-31 11:45] LABS: C-Reactive Protein < 0.50 mg/dL (<or=0.5)
== END 2024-01-31 03:04 | disposition home or self-care (01) ==
LOC: LBO 03:03
PROVIDERS: PCP Family Medicine; Visit Provider Internal Medicine Rheumatology
DX: M05.79 Rheumatoid arthritis with rheumatoid factor of multiple sites without organ or systems involvement (principal)
CPT/HCPCS: 36415; 80053; 85025; 86140

== ENCOUNTER 2024-03-26 05:14 | Outpatient (CLI) | payer OTHER, SELFPAY ==
[2024-03-26 12:10] LABS: Abs Immature Grans 0.02 10^3/uL (0.0-0.06); Absolute Basophil Count 0.05 10^3/uL (0.0-0.2); Absolute Eosinophil Count 1.03 10^3/uL (0.0-0.7); Absolute Lymphocyte Count 1.97 10^3/uL (1.2-3.4); Absolute Monocyte Count 0.54 10^3/uL (0.1-0.8); Absolute Neutrophil Count 5.33 10^3/uL (1.2-6.7); Basophils % 0.6 %; Eosinophils % 11.5 %; HCT 41.3 % (40.0-50.0); Immature Grans % 0.2 %; MCH 31.4 pg (27.0-33.0); MCHC 33.9 % (32.0-36.0); MCV 93 fL (80-95); MPV 9.5 fL (8.0-11.0); Neutrophils % 59.7 %; Platelet Count 280 10^3/uL (130-400); RBC 4.46 10^6/uL (4.36-5.78); RDW 12.8 % (11.8-14.1); RDW-SD 43.8 fL; WBC 8.94 10^3/uL (4.4-10.8)
[2024-03-26 12:55] LABS: Vitamin D 25 Total 28.7 ng/mL (30-100)
[2024-03-26 12:59] LABS: ALT 34 U/L (16-63); AST 23 U/L (15-37); Albumin 4.2 g/dL (3.4-5.0); Alkaline Phosphatase 68 U/L (46-116); Anion Gap 9.6 mmol/L (3-11); BUN 15 mg/dL (7-18); Bilirubin, Total 0.3 mg/dL (0.2-1.0); CO2 28.4 mmol/L (21.0-32.0); Calcium 10.6 mg/dL (8.5-10.1); Calculated LDL 148 mg/dL (<100); Chloride 107 mmol/L (98-107); Cholesterol 250 mg/dL (<200); Estimated GFR 82.49 (mL/min/1.73m2); Glucose 119 mg/dL (74-106); HDL Cholesterol 58 mg/dL (40-60); Potassium 4.1 mmol/L (3.5-5.1); Sodium 145 mmol/L (136-145); Total Protein 7.6 g/dL (6.4-8.2); Triglyceride 224 mg/dL (<150)
[2024-03-26 13:13] LABS: C-Reactive Protein < 0.50 mg/dL (<or=0.5)
[2024-03-26 23:40] LABS: Parathyroid Hormone,Intact 57 pg/mL (19-88)
[2024-03-31 16:41] LABS: 1,25-Dihydroxyvitamin D 37 pg/mL (18-64)
== END 2024-03-26 05:15 | disposition home or self-care (01) ==
PROVIDERS: PCP Family Medicine; Visit Provider Internal Medicine Rheumatology
DX: N20.0 Calculus of kidney (principal); R91.8 Other nonspecific abnormal finding of lung field
CPT/HCPCS: 36415; 80053; 80061; 82306; 82652; 83970; 85025; 86140

== ENCOUNTER 2024-09-25 03:34 | Outpatient (CLI) | payer OTHER, SELFPAY ==
[2024-09-25 10:39] LABS: Abs Immature Grans 0.03 10^3/uL (0.0-0.06); Absolute Basophil Count 0.06 10^3/uL (0.0-0.2); Absolute Lymphocyte Count 1.41 10^3/uL (1.2-3.4); Absolute Monocyte Count 0.87 10^3/uL (0.1-0.8); Absolute Neutrophil Count 5.55 10^3/uL (1.2-6.7); Basophils % 0.7 %; Eosinophils % 10.2 %; HCT 43.3 % (40.0-50.0); HGB 14.8 g/dL (13.5-17.5); Immature Grans % 0.3 %; MCH 32.5 pg (27.0-33.0); MCHC 34.2 % (32.0-36.0); MCV 95 fL (80-95); MPV 9.2 fL (8.0-11.0); Monocytes % 9.9 %; Neutrophils % 62.9 %; Platelet Count 193 10^3/uL (130-400); RBC 4.56 10^6/uL (4.36-5.78); RDW 11.9 % (11.8-14.1); RDW-SD 41.3 fL; WBC 8.82 10^3/uL (4.4-10.8)
[2024-09-25 10:48] LABS: Hemoglobin A1C 5.5 % (<5.7)
[2024-09-25 10:57] LABS: ALT 53 U/L (16-63); AST 27 U/L (15-37); Albumin 4.3 g/dL (3.4-5.0); Alkaline Phosphatase 56 U/L (46-116); Anion Gap 8.4 mmol/L (3-11); BUN 16 mg/dL (7-18); Bilirubin, Total 0.46 mg/dL (0.2-1.0); CO2 27.6 mmol/L (21.0-32.0); CREATININE 0.9 mg/dL (0.70-1.30); Calcium 10.2 mg/dL (8.5-10.1); Calculated LDL 141 mg/dL (<100); Chloride 107 mmol/L (98-107); Cholesterol 263 mg/dL (<200); Estimated GFR 93.61 (mL/min/1.73m2); Glucose 128 mg/dL (74-106); HDL Cholesterol 55 mg/dL (40-60); Potassium 4.3 mmol/L (3.5-5.1); Sodium 143 mmol/L (136-145); Total Protein 7.5 g/dL (6.4-8.2); Triglyceride 337 mg/dL (<150)
== END 2024-09-25 03:35 | disposition home or self-care (01) ==
LOC: LBO 03:34
PROVIDERS: PCP Family Medicine; Visit Provider Family Medicine
DX: Z00.00 Encounter for general adult medical examination without abnormal findings (principal); Z12.5 Encounter for screening for malignant neoplasm of prostate; E78.5 Hyperlipidemia, unspecified; Z79.899 Other long term (current) drug therapy
CPT/HCPCS: 36415; 80053; 80061; 84153; 83036; 85025

== ENCOUNTER 2025-03-23 02:46 | Outpatient (CLI) | payer OTHER, SELFPAY ==
[2025-03-23 10:15] LABS: Abs Immature Grans 0.02 10^3/uL (0.0-0.06); Absolute Basophil Count 0.06 10^3/uL (0.0-0.2); Absolute Lymphocyte Count 1.58 10^3/uL (1.2-3.4); Absolute Monocyte Count 0.61 10^3/uL (0.1-0.8); Absolute Neutrophil Count 4.02 10^3/uL (1.2-6.7); Basophils % 0.8 %; HCT 43.8 % (40.0-50.0); HGB 14.8 g/dL (13.5-17.5); Immature Grans % 0.3 %; Lymphocytes % 21.1 %; MCH 32.3 pg (27.0-33.0); MCHC 33.8 % (32.0-36.0); MCV 96 fL (80-95); MPV 9.5 fL (8.0-11.0); Monocytes % 8.1 %; Neutrophils % 53.7 %; Platelet Count 211 10^3/uL (130-400); RBC 4.58 10^6/uL (4.36-5.78); RDW 12.4 % (11.8-14.1); RDW-SD 43.5 fL; WBC 7.49 10^3/uL (4.4-10.8)
[2025-03-23 10:46] LABS: ALT 49 U/L (16-63); AST 26 U/L (15-37); Albumin 4.3 g/dL (3.4-5.0); Alkaline Phosphatase 57 U/L (46-116); Anion Gap 8.2 mmol/L (3-11); BUN 16 mg/dL (7-18); Bilirubin, Total 0.5 mg/dL (0.2-1.0); CO2 29.8 mmol/L (21.0-32.0); CREATININE 0.9 mg/dL (0.70-1.30); Calcium 10.3 mg/dL (8.5-10.1); Calculated LDL 152 mg/dL (<100); Chloride 105 mmol/L (98-107); Cholesterol 258 mg/dL (<200); Estimated GFR 93.03 (mL/min/1.73m2); Glucose 124 mg/dL (74-106); HDL Cholesterol 53 mg/dL (>or=40); Potassium 4.4 mmol/L (3.5-5.1); Sodium 143 mmol/L (136-145); Total Protein 7.4 g/dL (6.4-8.2); Triglyceride 265 mg/dL (<150)
== END 2025-03-23 02:47 | disposition home or self-care (01) ==
PROVIDERS: PCP Family Medicine; Visit Provider Internal Medicine Rheumatology
DX: Z79.899 Other long term (current) drug therapy (principal)
CPT/HCPCS: 36415; 80053; 80061; 85025

== ENCOUNTER 2025-10-09 00:18 | Outpatient (CLI) | payer OTHER, SELFPAY ==
[2025-10-09 07:42] LABS: Abs Immature Grans 0.01 10^3/uL (0.0-0.06); HCT 43.3 % (40.0-50.0); HGB 14.6 g/dL (13.5-17.5); Immature Grans % 0.2 %; MCH 30.8 pg (27.0-33.0); MCHC 33.7 % (32.0-36.0); MCV 91 fL (80-95); MPV 9.4 fL (8.0-11.0); Platelet Count 212 10^3/uL (130-400); RBC 4.74 10^6/uL (4.36-5.78); RDW 12.1 % (11.8-14.1); RDW-SD 40.6 fL; WBC 5.73 10^3/uL (4.4-10.8)
[2025-10-09 11:35] LABS: ALT 49 U/L (10-49); AST 35 U/L (<34); Albumin 4.5 g/dL (3.4-5.0); Alkaline Phosphatase 52 U/L (46-116); Anion Gap 7.6 mmol/L (3-11); BUN 17 mg/dL (9-23); Bilirubin, Total 0.30 mg/dL (0.2-1.2); CO2 28.4 mmol/L (20.0-31.0); Calcium 10.5 mg/dL (8.3-10.6); Chloride 107 mmol/L (98-107); Glucose 110 mg/dL (74-106); Potassium 4.3 mmol/L (3.5-5.1); Sodium 143 mmol/L (136-145); Total Protein 7.1 g/dL (5.7-8.2)
[2025-10-09 11:38] LABS: Vitamin D 25 Total 23 ng/mL (30-100)
[2025-10-09 13:47] LABS: Cholesterol 252 mg/dL (<200); HDL Cholesterol 46 mg/dL (>40)
[2025-10-09 13:56] LABS: Hemoglobin A1C 5.5 % (<5.7)
[2025-10-09 18:41] LABS: PSA, Screening 3.4 ng/mL (<=4.5)
== END 2025-10-09 00:19 | disposition home or self-care (01) ==
LOC: LBO 00:18
PROVIDERS: Internal Medicine Rheumatology; PCP Family Medicine; Visit Provider Family Medicine
DX: M05.79 Rheumatoid arthritis with rheumatoid factor of multiple sites without organ or systems involvement (principal); Z79.899 Other long term (current) drug therapy
CPT/HCPCS: 36415; 80053; 80061; 82306; 84153; 82330; 83036; 83970; 85025